=== PATIENT | female | born 1970 | race Caucasian/White ===

== ENCOUNTER 2016-03-25 11:32 | Observation (INO) | payer OTHER ==
[~2016-03-25] VITALS: Ht 154.9 cm; Wt 70.8 kg
[2016-03-25 12:16] LABS: BASO # 0.2 K/mm3 (0.0-0.2); BASO % 2.4 % (0.0-1.0); EOS # 0.3 K/mm3 (0.0-0.50); LARGE UNSTAINED CELL # 0.2 K/mm3 (0.0-0.4); LARGE UNSTAINED CELL % 1.6 % (0.0-4.0); LYMPH # 2.8 K/mm3 (1.5-4.5); LYMPH % 27.8 % (24.0-44.0); MEAN CORPUSCULAR HEMOGLOBIN 30.2 pg (27.0-33.0); MEAN CORPUSCULAR HGB CONC 32.8 g/dl (32.0-36.5); MEAN CORPUSCULAR VOLUME 92.1 fl (80.0-96.0); MONO # 0.3 K/mm3 (0.0-0.8); MONO % 3.5 % (0.0-5.0); NEUTROPHILS % 61.8 % (36.0-66.0); PLATELET COUNT, AUTOMATED 235 k/mm3 (150-450); RED CELL DISTRIBUTION WIDTH 13.8 % (11.5-14.5); WHITE BLOOD COUNT 9.7 K/mm3 (4.0-10.0)
[2016-03-25 12:47] LABS: ANION GAP 7 MEQ/L (8-16); BLOOD UREA NITROGEN 10 MG/DL (7-18); CALCIUM LEVEL 8.5 MG/DL (8.5-10.1); CARBON DIOXIDE LEVEL 26 MEQ/L (21-32); CHLORIDE LEVEL 108 MEQ/L (98-107); CREATININE FOR GFR 0.68 MG/DL (0.55-1.02); FREE T4 0.81 NG/DL (0.76-1.46); GLOMERULAR FILTRATION RATE > 60.0 (>58); GLUCOSE, FASTING 87 MG/DL (70-105); SODIUM LEVEL 141 MEQ/L (136-145)
[2016-03-25 13:01] LABS: MAGNESIUM LEVEL 2.3 MG/DL (1.8-2.4)
--- NOTE | 2016-03-25 13:20 | REP ---
PORTABLE CHEST: AP portable view of the chest is performed and compared to multiple prior exams, most recent of which is 11/04/2014 from [facility]. There is bibasilar fibrotic change which is stable. No definite acute infiltrate is seen. There is mild elevation of the left hemidiaphragm. Heart is normal in size and the mediastinal silhouette is unchanged. IMPRESSION: Stable chronic bibasilar fibrotic changes without evidence of acute infiltrate. Signed by Brian Kunz MD 03/25/2016 05:04 P
[2016-03-25] MEDS ORDERED: FISH5CAP PO (13:24)
[2016-03-25] MEDS ORDERED: CYMB1CAP5 PO (13:24)
[2016-03-25] MEDS ORDERED: MELO15TA4 PO (13:24)
[2016-03-25] MEDS ORDERED: ATOR1TAB21 PO (13:24)
[2016-03-25] MEDS ORDERED: GINK120C4 PO (13:24)
[2016-03-25] MEDS ORDERED: CALCCHW8 PO (13:24)
[2016-03-25] MEDS ORDERED: ISOVUE-370 76% 100ML VIAL (Q9967) As Ordered ONE (15:32)
--- NOTE | 2016-03-25 17:00 | REP ---
CT angiogram of the chest abdomen and pelvis : With IV contrast: History: Evaluate for dissection. Comparison studies: Comparison CT study of the chest without contrast is from 12/16/2014. Contrast dose: 100 mL of Isovue-[address] technique: Helical scanning is acquired and overlapping 1.5 mm and contiguous 3 mm axial images are reformatted. In addition, a 3-D work station is deployed to generate thick slab maximum intensity projection images in sagittal and coronal imaging projections. CT angiographic findings: The thoracic aorta is normal in coarse, contour, and caliber and enhances homogeneously. There is no evidence of thoracic aortic dissection. Great vessels are unremarkable. There is good opacification of the pulmonary arterial tree as well as the and there is no CT evidence of pulmonary embolism. The abdominal aorta enhances homogeneously and shows atherosclerotic vascular changes with calcified pleural plaquing but no evidence of dissection or aneurysm. The common iliac, internal iliac, and external iliac arteries are widely patent bilaterally showing mild atherosclerotic changes. The celiac, superior mesenteric, renal, and inferior mesenteric arteries are patent. The right renal artery is duplicated with a smaller branch the lower pole. No renal artery stenosis is seen. Lung window settings demonstrate a peripheral pattern of subpleural emphysematous changes in the upper lobes bilaterally. There is a post thoracotomy suture line visible in the left upper lobe anteriorly. No pulmonary mass lesion is seen. No new infiltrate is seen. The pulmonary parenchymal findings are unchanged and compared with the prior CT study of 12/16/2014. No pleural effusion or pericardial effusion is seen. There are scattered normal sized mediastinal lymph nodes which are also unchanged. No focal liver lesion is seen. Spleen, adrenal glands, and pancreas remain unremarkable. No renal abnormality is seen. Normal appendix is noted behind the cecum. Uterus is retroverted and retroflexed tipped somewhat to the right. Urinary bladder is intact. No significant bony abnormality is seen. Impression: No CT evidence of aortic dissection or aneurysm or other acute vascular abnormality. No CT evidence of pulmonary embolus. Signed by Brian Mahan MD 03/25/2016 05:15 P
--- NOTE | 2016-03-25 17:35 | ECGEPIP ---
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 RBBB NO PRIORS Electronically Signed On 03-25-2016 17:35:45 EST by Marcus Montero
[2016-03-25] MEDS ORDERED: ONDANSETRON 4MG/2ML VIAL (J2405) IV PRN (17:45)
--- NOTE | 2016-03-25 19:56 | EDDOCDS ---
Nurse's Notes [facility] Name: Reymundo David Age: 45 yrs Sex: Female : 1970 Arrival Date: 03/25/2016 Time: 11:32 Bed TR7 Private MD: Diagnosis: Syncope and collapse-near syncope;Encounter for examination of blood pressure-hypertensive episode, now improved Presentation: 03/25 11:39 Presenting complaint: EMS states: pt with near syncopal episode while at Dr. Mendez kc3 office. EMS reported pt was dizzy and weak. Pt reports felt lethargic. Transition of care: patient was received from Dr. Mendez. 11:39 Acuity: MICHEL Level 3 kc3 11:39 Method Of Arrival: Ambulance 3 11:57 Adult Sepsis Screening: The patient does not have new or worsening altered mentation. kc3 Patient's respiratory rate is less than 22. Systolic blood pressure is greater than 100. Patient has a qSOFA score of 0- Negative Sepsis Screen. Suicide/Homicide risk assessment- the patient denies having any suicidal and/or homicidal ideations and does not present with any other emotional, behavioral or mental health complaints. Status: Patient is not a financial services counselor or dependent. Triage Assessment: 11:57 General: Appears in no apparent distress, comfortable, Behavior is appropriate for age, kc3 cooperative. Pain: Location: headache Pain currently is 4 out of 10 on a pain scale. HIV screening NA for this visit Offered previously. The patient is triaged at the bedside. See Assessment in Nurses Notes section of ED record. Neurological: Level of Consciousness is awake, alert, obeys commands, Oriented to person, place, time. Cardiovascular: Rhythm is sinus bradycardia No ectopy. Respiratory: Respiratory effort is even, unlabored, Respiratory pattern is regular, symmetrical. GI: Reports nausea. Derm: Skin is pink, warm & dry. Musculoskeletal: Circulation, motion, and sensation intact. COIN PURSE FRAMER: 11:58 LMP N/A - Post-menopause kc3 Historical: - Allergies: no known allergies; - Home Meds: 1. meloxicam 15 mg oral tab once daily (Last dose: 03/24/2016) 2. atorvastatin 20 mg oral tab 1 tab once daily (Last dose: 03/24/2016) 3. duloxetine 30 mg Oral cpDR 1 cap once daily (Last dose: 03/24/2016) 4. omega complete daily 5. calcium vitamin d3 daily 6. gingkgo biloba daily - PMHx: Emphysema; Hypercholesterolemia; Migraines; Chiari Malformation; - PSHx: emobolus removal from lung; Carpal Tunnel Repair- Bilateral; - Social history: Smoking status: Patient uses tobacco products, heavy tobacco smoker. No barriers to communication noted, The patient speaks fluent Stateless, Speaks appropriately for age. - Family history: Not pertinent. - : The pt / caregiver states he / she is not on anticoagulants. Home medication list is obtained from the patient. - Exposure Risk Screening:: None identified. Screenin:58 Screening information is obtained from the patient. Fall risk: At risk due to near kc3 syncope. The following interventions are performed due to a positive Fall Risk Screen: Fall Risk is added to Special Handling on the patient Summary Screen. A Fall Risk Bracelet was applied to the patient. Side Rails are placed in the up position. A Call Simon is given with instruction to call for help when getting out of bed. Fall Alert bracelet is placed on the patient. Assistance ADL's: requires no assistance with activities of daily living. Abuse/DV Screen: The patient / caregiver reports he/she is: not in a situation that causes fear, pain or injury. Nutritional screening: No deficits noted. Advance Directives: Currently, there is no health care proxy. home support is adequate. Assessment: 12:20 General: See triage for initial assessment. . kc3 13:00 General: Appears in no apparent distress, comfortable, Behavior is appropriate for age, kc3 cooperative. General: Pt reported "several seconds of chest pain where my arms felt weak." Pt reports pain as non-radiating and has now resolved. Annalise Killian NP aware. . Pain: Denies pain. Neurological: Level of Consciousness is awake, alert, obeys commands, Oriented to person, place, time. Cardiovascular: Rhythm is sinus rhythm Chest pain is denied. Respiratory: Respiratory effort is even, unlabored. Derm: Skin is pink, warm & dry. 13:57 Adult Sepsis Screening: The patient does not have new or worsening altered mentation. kc3 Patient's respiratory rate is less than 22. Systolic blood pressure is greater than 100. Patient has a qSOFA score of 0- Negative Sepsis Screen. 14:05 General: Appears in no apparent distress, comfortable, Behavior is appropriate for age, kc3 cooperative. Pain: Denies pain. Neurological: Level of Consciousness is awake, alert, obeys commands. Cardiovascular: Rhythm is sinus rhythm. Respiratory: Respiratory effort is even, unlabored. Derm: Skin is pink, warm & dry. 14:45 General: Appears in no apparent distress, comfortable, Behavior is appropriate for age, kc3 cooperative. General: Pt given diet tray. . Pain: Denies pain. Neurological: Level of Consciousness is awake, alert, obeys commands. Respiratory: Respiratory effort is even, unlabored. 15:59 General: Appears in no apparent distress, comfortable, Behavior is appropriate for age, kc3 cooperative. Pain: Denies pain. Neurological: Level of Consciousness is awake, alert, obeys commands, Oriented to person, place, time. Cardiovascular: Rhythm is sinus rhythm. Respiratory: Respiratory effort is even, unlabored. Derm: Skin is pink, warm & dry. 17:06 General: Appears in no apparent distress, comfortable, Behavior is appropriate for age, kc3 cooperative. Pain: Denies pain. Neurological: Level of Consciousness is awake, alert, obeys commands, Oriented to person, place, time. Cardiovascular: Rhythm is sinus rhythm. Respiratory: Respiratory effort is even, unlabored. Derm: Skin is pink, warm & dry. 17:32 General: Admitting MD at bedside. . kc3 17:45 General: Report given to irvin nurse. . kc3 18:34 General: Appears in no apparent distress, comfortable, Behavior is appropriate for age, me3 cooperative. Neurological: Level of Consciousness is awake, alert, Oriented to person. Respiratory: Airway is patent Respiratory effort is even, unlabored. 19:54 General: Pt signed out AMA per Evonne Bowers RN irvin nurse.. sls1 Vital Signs: 11:49 BP 121 / 58; Pulse 56; Resp 18; Temp 99; Pulse Ox 97% on R/A; Weight 70.76 kg (R); ct3 Height 5 ft. 1 in. (154.94 cm) (R); Pain 0/10; 13:28 BP 114 / 66 RA Sitting (auto/reg); Pulse 77; Resp 18; Pulse Ox 96% on R/A; ct3 13:28 BP 118 / 56 RA Supine (auto/reg); Pulse 56; Resp 18; Temp 97.2(O); Pulse Ox 96% on R/A; ct3 Pain 0/10; 13:28 BP 103 / 69 RA Standing (auto/reg); Pulse 77; Resp 18; Pulse Ox 96% on R/A; ct3 14:46 Pulse 70 MON; Pulse Ox 95% ; kc3 14:47 BP 129 / 69 (auto/); kc3 15:17 BP 111 / 58 (auto/); kc3 15:17 Pulse 64 MON; Pulse Ox 96% ; kc3 15:46 Pulse 64 MON; Pulse Ox 95% ; kc3 15:47 BP 111 / 55 (auto/); kc3 16:17 BP 133 / 58 (auto/); kc3 16:17 Pulse 64 MON; Pulse Ox 94% ; kc3 16:47 BP 112 / 70 (auto/); kc3 16:47 Pulse 62 MON; Pulse Ox 95% ; kc3 17:18 BP 127 / 59 (auto/); kc3 17:18 Pulse 58 MON; Pulse Ox 95% ; kc3 11:49 Body Mass Index 29.48 (70.76 kg, 154.94 cm) ct3 Vitals: 11:49 Log In Time N/A - ambulance arrival. ct3 ED Course: 11:33 Patient visited by Celia Lynn, Assembly Loader. deg 11:33 Patient moved to Waiting deg 11:34 Edie Wu,RN is Primary Nurse. deg 11:34 Patient moved to 11 deg 11:40 Triage Initiated kc3 11:40 Maintain field IV. Dressing intact. Site clean & dry. Gauge & site: 18g left AC. kc3 11:49 Patient has correct armband on for positive identification. Placed in gown. Bed in low ct3 position. Call light in reach. Side rails up X2. court usher on. Pulse ox on. NIBP on. 11:50 Patient visited by Tamela Montoya PCA. ct3 11:58 The patient / caregiver is instructed regarding the plan of care and ED course. kc3 12:26 Patient visited by Edie Wu,SHRADDHA. kc3 12:35 Annalise Killian FNP is PHCP. le 12:40 Patient visited by Annalise Killian FNP. le 12:41 Patient visited by Annalise Killian FNP. le 13:13 Patient visited by Shreyas Aguirre PCA. jlf 13:31 Patient visited by Tamela Montoya PCA. ct3 13:32 Chest, 1 View Returned. EDMS 14:06 Patient visited by Edie Wu,SHRADDHA. kc3 14:47 Patient visited by Edie Wu,SHRADDHA. kc3 14:55 Natty Bo is Hospitalizing Provider. le 14:59 Patient visited by Edie Wu RN. kc3 15:01 Patient visited by Edie Wu RN. kc3 15:13 Patient name changed from Reymundo\\S\\\\S\\Frankie\\S\\ to Reymundo\\S\\M\\S\\Miller. EDMS 15:13 [place] Payment Agreement was scanned into [employer] and attached to record. lg 15:17 Patient moved to Admit Hold js13 17:07 Patient visited by Edie Wu RN. kc3 17:13 Chest, 1 View Returned. EDMS 17:14 CT Chest Angio R/O PE Returned. EDMS 17:32 Patient visited by Edie Wu RN. kc3 17:37 Patient moved to I9 / 22 kcs 17:46 Patient visited by Edie Wu RN. kc3 17:50 EKG-ADULT Returned. EDMS 17:58 Patient moved to Ultrasound hgl 18:04 Patient moved to Admit Hold js13 18:35 Diet: Patient given regular meal. Tolerated well. me3 19:53 Patient moved to TR7 [facility] Order Results: Lab Order: CBC with Diff; SPEC'M 03/25/16 12:05 Test: WHITE BLOOD COUNT; Value: 9.7; Range: 4.0-10.0; Units: K/mm3; Status: F Test: RED BLOOD COUNT; Value: 4.71; Range: 4.00-5.40; Units: M/mm3; Status: F Test: HEMOGLOBIN; Value: 14.2; Range: 12.0-16.0; Units: g/dl; Status: F Test: HEMATOCRIT; Value: 43.3; Range: 36.0-47.0; Units: %; Status: F Test: MEAN CORPUSCULAR VOLUME; Value: 92.1; Range: 80.0-96.0; Units: fl; Status: F Test: MEAN CORPUSCULAR HEMOGLOBIN; Value: 30.2; Range: 27.0-33.0; Units: pg; Status: F Test: MEAN CORPUSCULAR HGB CONC; Value: 32.8; Range: 32.0-36.5; Units: g/dl; Status: F Test: RED CELL DISTRIBUTION WIDTH; Value: 13.8; Range: 11.5-14.5; Units: %; Status: F Test: PLATELET COUNT, AUTOMATED; Value: 235; Range: 150-450; Units: k/mm3; Status: F Test: NEUTROPHILS %; Value: 61.8; Range: 36.0-66.0; Units: %; Status: F Test: LYMPH %; Value: 27.8; Range: 24.0-44.0; Units: %; Status: F Test: MONO %; Value: 3.5; Range: 0.0-5.0; Units: %; Status: F Test: EOS %; Value: 3.0; Range: 0.0-3.0; Units: %; Status: F Test: BASO %; Value: 2.4; Range: 0.0-1.0; Abnormal: Above high normal; Units: %; Status: F Test: LARGE UNSTAINED CELL %; Value: 1.6; Range: 0.0-4.0; Units: %; Status: F Test: NEUTROPHILS #; Value: 6.0; Range: 1.8-7.7; Units: K/mm3; Status: F Test: LYMPH #; Value: 2.8; Range: 1.5-4.5; Units: K/mm3; Status: F Test: MONO #; Value: 0.3; Range: 0.0-0.8; Units: K/mm3; Status: F Test: EOS #; Value: 0.3; Range: 0.0-0.50; Units: K/mm3; Status: F Test: BASO #; Value: 0.2; Range: 0.0-0.2; Units: K/mm3; Status: F Test: LARGE UNSTAINED CELL #; Value: 0.2; Range: 0.0-0.4; Units: K/mm3; Status: F Lab Order: MED Profile; SPEC'M 17 12:05 Test: GLUCOSE, FASTING; Value: 87; Range: 70-105; Units: MG/DL; Status: F Test: BLOOD UREA NITROGEN; Value: 10; Range: 7-18; Units: MG/DL; Status: F Test: CREATININE FOR GFR; Value: 0.68; Range: 0.55-1.02; Units: MG/DL; Status: F Test: GLOMERULAR FILTRATION RATE; Value: > 60.0; Range: >58; Status: F Test: SODIUM LEVEL; Value: 141; Range: 136-145; Units: MEQ/L; Status: F Test: POTASSIUM SERUM; Value: 4.0; Range: 3.5-5.1; Units: MEQ/L; Status: F Test: CHLORIDE LEVEL; Value: 108; Range: 98-107; Abnormal: Above high normal; Units: MEQ/L; Status: F Test: CARBON DIOXIDE LEVEL; Value: 26; Range: 21-32; Units: MEQ/L; Status: F Test: ANION GAP; Value: 7; Range: 8-16; Abnormal: Below low normal; Units: MEQ/L; Status: F Test: CALCIUM LEVEL; Value: 8.5; Range: 8.5-10.1; Units: MG/DL; Status: F Test Note: ; Units are mL/min/1.73 m2 Chronic Kidney Disease Staging per NKF: Stage I & II GFR >=60 Normal to Mildly Decreased Stage III GFR 30-59 Moderately Decreased Stage IV GFR 15-29 Severely Decreased Stage V GFR <15 Very Little GFR Left ESRD GFR <15 on STAMP MOUNTER Lab Order: CIP; SPEC'M 03/25/16 12:05 Test: CPK CREATINE PHOSPHOKINASE; Value: 206; Range: 26-192; Abnormal: Above high normal; Units: U/L; Status: F Test: CK-MB VALUE MASS; Value: 1.8; Range: 0.0-3.6; Units: NG/ML; Status: F Test: MB/CK RELATIVE INDEX; Value: 0.87; Range: < OR =4; Status: F Test Note: ; DIAGNOSIS CRITERIA MMB ng/ml Relative Index (RI) NON-AMI < or = 5 N/A KUNZ ZONE > 5 < or = 4 AMI > 5 > 4 Lab Order: Troponin; SPEC'M 03/25/16 12:05 Test: TROPONIN I; Value: < 0.02; Range: < 0.10; Units: NG/ML; Status: F Test Note: ; Troponin I Reference Interval for Siemens [place] LOCI: 99th Percentile= 0.00-0.045 ng/ml Risk Stratification: <= 0.10 ng/ml Decreased Risk for Adverse Clinical Events. 0.10-1.50 ng/ml Increased Risk for Adverse Clinical Events. Evaluation of additional criterion and/or repeat testing in 2-6 hours is suggested to rule out myocardial damage. >= 1.50 ng/ml Indicative of Myocardial Injury. Lab Order: FreeT4 with TSH; SPEC'M 03/25/16 12:05 Test: THYROID STIMULATING HORMONE; Value: 1.120; Range: 0.358-3.740; Units: uIU/ML; Status: F Test: FREE T4; Value: 0.81; Range: 0.76-1.46; Units: NG/DL; Status: F Lab Order: D-Dimer Quant; SPEC'M 03/25/16 12:05 Test: D-DIMER QUANT; Value: 426.8; Range: <500; Units: ng/ml; Status: F Lab Order: MAGNESIUM LEVEL; SPEC'M 03/25/16 12:05 Test: MAGNESIUM LEVEL; Value: 2.3; Range: 1.8-2.4; Units: MG/DL; Status: F Radiology Order: EKG-ADULT Test: EKG-ADULT REASON FOR EXAMINATION: Syncope; Stationary ECG Study; [facility] - ED; ; Test Date: 2016-03-25; Pat Name: REYMUNDO DAVID Department:; Room: -; 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 RBBB; NO PRIORS; Electronically Signed On 03-25-2016 17:35:45 EST by Marcus Montero; Radiology Order: Chest, 1 View Test: Chest, 1 View REASON FOR EXAMINATION: Syncope; PORTABLE CHEST:; ; AP portable view of the chest is performed and compared to multiple prior exams,; most recent of which is 11/04/2014 from [facility]. There is; bibasilar fibrotic change which is stable. No definite acute infiltrate is seen.; There is mild elevation of the left hemidiaphragm. Heart is normal in size and; the mediastinal silhouette is unchanged.; ; IMPRESSION:; ; Stable chronic bibasilar fibrotic changes without evidence of acute infiltrate.; ; ; Signed by; Brian Kunz MD 03/25/2016 05:04 P; Radiology Order: CT Chest Angio R/O PE Test: CT Chest Angio R/O PE REASON FOR EXAMINATION: eval for dissection; CT angiogram of the chest abdomen and pelvis : With IV contrast:; ; History: Evaluate for dissection.; ; Comparison studies: Comparison CT study of the chest without contrast is from; 12/16/2014.; ; Contrast dose: 100 mL of Isovue-370 are administered intravenously.; ; CT technique: Helical scanning is acquired and overlapping 1.5 mm and contiguous; 3 mm axial images are reformatted. In addition, a 3-D work station is deployed; to generate thick slab maximum intensity projection images in sagittal and; coronal imaging projections.; ; CT angiographic findings: The thoracic aorta is normal in coarse, contour, and; caliber and enhances homogeneously. There is no evidence of thoracic aortic; dissection. Great vessels are unremarkable. There is good opacification of the; pulmonary arterial tree as well as the and there is no CT evidence of pulmonary; embolism. The abdominal aorta enhances homogeneously and shows atherosclerotic; vascular changes with calcified pleural plaquing but no evidence of dissection or; aneurysm. The common iliac, internal iliac, and external iliac arteries are; widely patent bilaterally showing mild atherosclerotic changes. The celiac,; superior mesenteric, renal, and inferior mesenteric arteries are patent. The; right renal artery is duplicated with a smaller branch the lower pole. No renal; artery stenosis is seen.; ; Lung window settings demonstrate a peripheral pattern of subpleural emphysematous; changes in the upper lobes bilaterally. There is a post thoracotomy suture line; visible in the left upper lobe anteriorly. No pulmonary mass lesion is seen. No; new infiltrate is seen. The pulmonary parenchymal findings are unchanged and; compared with the prior CT study of 12/16/2014. No pleural effusion or; pericardial effusion is seen. There are scattered normal sized mediastinal lymph; nodes which are also unchanged. No focal liver lesion is seen. Spleen, adrenal; glands, and pancreas remain unremarkable. No renal abnormality is seen. Normal; appendix is noted behind the cecum. Uterus is retroverted and retroflexed tipped; somewhat to the right. Urinary bladder is intact. No significant bony; abnormality is seen.; ; Impression:; ; No CT evidence of aortic dissection or aneurysm or other acute vascular; abnormality. No CT evidence of pulmonary embolus.; ; ; Signed by; Brian Mahan MD 03/25/2016 05:15 P; Outcome: 15:00 Decision to Hospitalize by Provider. le 17:07 CT Study completed. kc3 19:54 The following High Risk Discharge criteria are identified: Yes, pt signed out AMA. [facility] patient is leaving AMA: AMA form signed, Notification of AMA status is made to the charge nurse, the oncology social worker, the ED attending physician, Other Dr Magdaleno. Condition: unknown. 19:55 Patient left the ED. [facility] Signatures: Dispatcher [employer] EDMS Kenna Rojas, RN RN kcs Celia Lynn, Assembly Loader Unit deg Karina Tanner, Ben Reg lg Brielle Pan,AIR LIFT OPERATOR AIR LIFT OPERATOR me3 Annalise Killian, MATZO FORMING MACHINE OPERATOR MATZO FORMING MACHINE OPERATOR Tamela Cavanaugh, CABLEMAN CABLEMAN ct3 Meaghan Jarvis, RN RN sls1 Thao Patterson,RN RN js13 Jose Zamarripa l Shreyas Aguirre, CABLEMAN CABLEMAN jlf Edie Wu,RN RN kc3 MTDD
--- NOTE | 2016-03-25 19:56 | EDDOCDS ---
Physician Documentation [facility] Name: Ofe David Age: 45 yrs Sex: Female : 1970 Arrival Date: 03/25/2016 Time: 11:32 Bed TR7 Private MD: Disposition: 03/25/16 15:00 Hospitalization ordered by Natty Bo for Observation. Preliminary diagnosis are Syncope and collapse - near syncope, Encounter for examination of blood pressure - hypertensive episode, now improved. - Bed requested for Admit. - Status is Observation. sls1 - Condition is Stable. - Problem is an acute exacerbation. - Symptoms have improved. Historical: - Allergies: no known allergies; - Home Meds: 1. meloxicam 15 mg oral tab once daily (Last dose: 03/24/2016) 2. atorvastatin 20 mg oral tab 1 tab once daily (Last dose: 03/24/2016) 3. duloxetine 30 mg Oral cpDR 1 cap once daily (Last dose: 03/24/2016) 4. omega complete daily 5. calcium vitamin d3 daily 6. gingkgo biloba daily - PMHx: Emphysema; Hypercholesterolemia; Migraines; Chiari Malformation; - PSHx: emobolus removal from lung; Carpal Tunnel Repair- Bilateral; - Social history: Smoking status: Patient uses tobacco products, heavy tobacco smoker. No barriers to communication noted, The patient speaks fluent Kazakh, Speaks appropriately for age. - Family history: Not pertinent. - : The pt / caregiver states he / she is not on anticoagulants. Home medication list is obtained from the patient. - Exposure Risk Screening:: None identified. 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 1 in. (154.94 cm) (R); Pain 0/10; 13:28 BP 114 / 66 RA Sitting (auto/reg); Pulse 77; Resp 18; Pulse Ox 96% on R/A; ct3 13:28 BP 118 / 56 RA Supine (auto/reg); Pulse 56; Resp 18; Temp 97.2(O); Pulse Ox 96% on R/A; ct3 Pain 0/10; 13:28 BP 103 / 69 RA Standing (auto/reg); Pulse 77; Resp 18; Pulse Ox 96% on R/A; ct3 14:46 Pulse 70 MON; Pulse Ox 95% ; kc3 14:47 BP 129 / 69 (auto/); kc3 15:17 BP 111 / 58 (auto/); kc3 15:17 Pulse 64 MON; Pulse Ox 96% ; kc3 15:46 Pulse 64 MON; Pulse Ox 95% ; kc3 15:47 BP 111 / 55 (auto/); kc3 16:17 BP 133 / 58 (auto/); kc3 16:17 Pulse 64 MON; Pulse Ox 94% ; kc3 16:47 BP 112 / 70 (auto/); kc3 16:47 Pulse 62 MON; Pulse Ox 95% ; kc3 17:18 BP 127 / 59 (auto/); kc3 17:18 Pulse 58 MON; Pulse Ox 95% ; kc3 11:49 Body Mass Index 29.48 (70.76 kg, 154.94 cm) ct3 MDM: 11:42 IV Saline Lock ordered. ml 11:42 Plant Engineering Manager/Pulse Ox/q 15 min VS ordered. ml 11:42 Rhythm Strip to chart ordered. ml 11:42 ECG WITH READING ER PHYS+CARDIAG ordered. EDMS 11:43 CBC with Diff Ordered. EDMS 11:43 MED Profile Ordered. EDMS 11:43 CIP Ordered. EDMS 11:43 Troponin Ordered. EDMS 11:43 FreeT4 with TSH Ordered. EDMS 11:44 Chest, 1 View Ordered. EDMS 12:36 Orthostatic VS ordered. le 12:54 BED REQUEST+ADM ordered. EDMS 12:54 D-Dimer Quant Ordered. EDMS 12:54 CBC with Diff Reviewed. le 12:54 MED Profile Reviewed. le 12:54 Troponin Reviewed. le 12:59 MED Profile Reviewed. le 12:59 CIP Reviewed. le 12:59 Troponin Reviewed. le 12:59 FreeT4 with TSH Reviewed. le 13:22 MED Profile Reviewed. le 13:22 CIP Reviewed. le 13:22 Troponin Reviewed. le 13:22 FreeT4 with TSH Reviewed. le 13:22 D-Dimer Quant Reviewed. le 13:22 MAGNESIUM LEVEL Reviewed. le 14:13 Financial registration complete. lg 14:40 Chest, 1 View Reviewed. le 15:10 CT Chest Angio R/O PE Ordered. EDMS 15:11 CT ANGIO ABD/PEL Ordered. EDMS 15:13 [place] Payment Agreement was scanned into [employer] and attached to record. lg 17:38 ECHOCARD,DOPPLER/COLOR FLOW ordered. EDMS 17:38 2 GRAM SODIUM DIET ordered. EDMS 17:39 Duplex,carotid (complete) Ordered. EDMS 17:43 URINE METANEPHRINES RANDOM Ordered. EDMS 18:04 Admission / Observation Status ordered. EDMS 19:32 COMPLETE BLOOD COUNT Ordered. EDMS 19:32 BASIC METABOLIC PROFILE Ordered. EDMS Signatures: Dispatcher [employer] EDMS Jaimie Ureña MD MD ml Karina Tanner, Reg Reg Annalise Buckley, Meaghan Bolden, RN RN sls1 Edie Wu,RN RN kc3 The chart was reviewed and I authenticate all verbal orders and agree with the evaluation and treatment provided.Corrections: (The following items were deleted from the chart) 13:00 12:55 MAGNESIUM LEVEL+LAB ordered. EDMS EDMS 17:38 14:29 REGULAR+DIET ordered. EDOR EDMS Attachments: 15:13 [place] Payment Agreement lg MTDD
[2016-03-25] MEDS ORDERED: HEPARIN SOD (PORCINE) 5000 UNITS/ML VIAL SC SCH (20:00)
[2016-03-25] MEDS ORDERED: NICOTINE 14 MG/24 HR TRANSDERMAL TD SCH (21:00)
[2016-03-25] MEDS ORDERED: ATORVASTATIN 20 MG TAB PO SCH (21:00)
[2016-03-25] MEDS ORDERED: DULoxetine 30 MG CAP (CYMBALTA) PO SCH (21:00)
[2016-03-25] MEDS ORDERED: MELOXICAM (MOBIC) 7.5 MG TAB PO SCH (21:00)
--- NOTE | 2016-03-25 21:29 | HPE ---
DATE OF ADMISSION: 03/25/2016 PRIMARY CARE PROVIDER: Dr. Bonds, [facility] NEUROSURGEON: Dr. Mendez. NEUROLOGIST: Dr. Page. CHIEF COMPLAINT: Hypertension. HISTORY OF PRESENT ILLNESS: Ms. David is a 45-year-old female with past medical history of Chiari malformation who was sent in from Dr. Mendez's office for high blood pressure. The patient states that in the last couple of months, has been feeling tired. She actually presented to Dr. Mendez's office today for routine followup and wanted to know the cause if her fatigue was related to her Chiari malformation. During the initial exam, she was found to have hypertension, systolic reportedly was anywhere from the 100s to low 200 range. Because of concern for her high blood pressure, she was sent in for further evaluation. Normally does not have a history of hypertension. States that she has had occasional episodes of syncopal episodes lasting for seconds. She is able to recall what happened after passing out. No postictal confusion, no urinary or bowel incontinence. The last time she had a syncopal episode was approximately a month ago. Recently she noticed that she is more tired, dizzy, lightheaded. She was told that her syncopal, near-syncopal episodes were likely secondary to her high blood pressure. She previously was started on tizanidine; however, because of concern for her muscle spasm where she feels "electrocution" going between her shoulder to her arm, she has stopped this medication altogether. Associated with chronic migraine headache, nausea. Says fatigue feels the same today. No chest pain, palpitations, fevers, chills. Chronic shortness of breath which she attributes to her underlying emphysema. Positive for chronic night sweats. In the emergency department (ED), her systolic blood pressure was 121 highest. Her orthostatics were positive. PAST MEDICAL HISTORY: 1. Tension pneumothorax. 2. Emphysema. 3. Hyperlipidemia. 4. Migraine headache. 5. Chiari malformation. 6. Arthritis. PAST SURGICAL HISTORY: 1. Left upper lobe wedge resection and bullectomy. 2. Carpal tunnel bilateral hand repair. ALLERGIES: No known drug allergies. HOME MEDICATIONS: - Lipitor 20 mg by mouth at bedtime - calcium one tab chewable - Cymbalta 30 mg at bedtime - fish oil 1200 every two days - gingko biloba 120 mg a few times a month - meloxicam 50 mg at bedtime which she takes for her chronic neck and headache SOCIAL HISTORY: The patient is a current smoker. Started smoking at the age of 20, a pack a day. Drinks whiskey once a month, a few shots. No drug use. No recent travel. 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 Lifetime travels includes to [place] and [place]. Currently lives at home with her two children and two cats. No history of tuberculosis or asbestos that she is aware of. FAMILY HISTORY: Mother from heart problems, hypertension. Father from alcohol and heart disease and prostate cancer. REVIEW OF SYSTEMS: CONSTITUTIONAL: Denies fevers, chills, rigors, weight changes. Positive for chronic chills, fatigue. HEENT: Positive for lightheadedness, dizziness. Tunnel vision with her headaches. No blurry vision, difficulty with speech and swallow. CARDIOVASCULAR: Denies chest pain, paroxysmal nocturnal dyspnea, pillow orthopnea, lower extremity edema. RESPIRATORY: Positive for chronic shortness of breath which is unchanged due to her emphysema. GASTROINTESTINAL: Denies hematochezia, melena, or hematemesis, nausea, vomiting, diarrhea, constipation. GENITOURINARY: No dysuria, frequency or hematuria. MUSCULOSKELETAL: No bone, muscle, joint pain. NEUROLOGICAL: Positive for Chiari malformation and migraine headaches. ENDOCRINE: Negative for diabetes, or thyroid disease. LYMPHATICS: No lumps, bumps, or swelling anywhere in neck, axilla, or groin. HEMATOLOGY: No abnormal bleeding or bruising. PSYCHIATRIC: No history of anxiety or depression. PHYSICAL EXAMINATION: VITAL SIGNS: Blood pressure 121/58, heart rate 56, respiratory rate 18, pulse oximetry 97% on room air, temperature 99. Body mass index (BMI) 30. GENERAL: The patient is lying in bed flat, comfortably in no acute distress. She is alert, awake, oriented times three. Pleasant, cooperative. HEENT: Normocephalic, atraumatic. Moist oral mucosa. Pupils equal and reactive to light. NECK: Supple. Trachea midline. No jugular venous distention (JVD). CHEST: Symmetric chest rise. No accessory muscle use. Breath sounds are clear to auscultation bilaterally. HEART: Regular rate and rhythm. S1, S2 present. ABDOMEN: Soft, nontender, nondistended. Bowel sounds present. No guarding, no rebound. EXTREMITIES: No pedal edema. Pedal pulses present bilaterally. NEUROLOGIC: Sensory intact. Strength 5/5 in all extremities. Deep tendon reflex (DTR) 2/4. Negative Babinski. Intact sucnce-[id number] and ghbp-[id number] testing. LABORATORY DATA: WBC 9.7, hemoglobin 14.2, hematocrit 43.4, platelets 235. Sodium 141, potassium 4, chloride 108, carbon dioxide 26, BUN 10, creatinine 0.68, glucose 87. Total CK 206, troponin negative. TSH normal. Free T4 normal. Coagulation: D-Dimer 426. EKG showed sinus rhythm, rate of 67, QTC 455. IMAGING: Chest x-ray showed stable chronic bibasilar fibrotic changes without evidence of acute infiltrate. CT angiogram showed no evidence of aortic dissection, aneurysm, or other acute vascular abnormality. IMPRESSION AND PLAN: Ms. David is a 45-year-old female with history of Chiari malformation, sent in for incidental finding of hypertension. 1. Hypertension. Transient hypertension. Resolved. Her blood pressure in the emergency department has been running systolic in the 100s-120s. Etiology for her transient hypertension unclear. She has no provoking factors. However, due to her history of recurrent syncopal episodes and near-syncopal episode, we have ordered a carotid ultrasound echo. Thyroid studies were checked and within normal limits. The patient will be monitored in the progressive care unit (PCU) closely to monitor for any underlying arrhythmia. She had mild QT elevation with QT 455. Will check for possible other causes for her transient hypertension including workup for pheochromocytoma. 2. History of Chiari malformation. Follows closely with neurology and neurosurgeon outpatient. 3. Emphysema with bulla, status post wedge resection. 4. Hyperlipidemia. Continue home dose Lipitor. 5. Chronic neck pain and headache. Continue Cymbalta. Continue meloxicam at bedtime. 6. Deep venous thrombosis (DVT) prophylaxis. Sequential compression devices (SCDs), thromboembolism deterrent stockings (TEDs), and heparin. My preceptor for this patient encounter was Dr. Natty Bo. The preceptor was physically present in the building during the encounter and was fully available as needed. All aspects of the patient interview, examination, medical decision making process, and medical care plan development were reviewed and approved by the preceptor. The preceptor is aware and concurs with the plan as stated in the body of this note and will attest to such by his/her co-signature. RYAN
--- NOTE | 2016-03-26 03:35 | REP ---
Clinical: Near-syncopal episode. Comparison: 01/24/2014 . Technique: Kunz scale and color Doppler evaluation using linear high frequency transducer Findings: Two-dimensional kunz scale and color images demonstrate normal arterial lumen with laminar flow and no appreciable narrowing. Color Doppler interrogation demonstrates normal arterial wave patterns and velocities with no significant spectral broadening. Normal flow direction is appreciated in the bilateral vertebral arteries. RIGHT (cm/s) LEFT (cm/s) ICA peak systolic velocity 54.9 91.1 ICA diastolic velocity 21.8 39.2 ECA peak systolic velocity 51.8 32.9 CCA peak systolic velocity 69.1 70.4 ICA/CCA ratio 0.79 1.29 Impression: No hemodynamically significant areas of narrowing or stenosis appreciated. Based on set standards narrowing falls within the normal range. Signed by Pricne Bajwa MD 03/26/2016 03:26 A
--- NOTE | 2016-03-27 20:55 | EDDOCDS ---
Physician Documentation [facility] Name: Ofe David Age: 45 yrs Sex: Female : 1970 Arrival Date: 03/25/2016 Time: 11:32 Bed TR7 Private MD: Disposition: 03/25/16 15:00 Hospitalization ordered by Natty Bo for Observation. Preliminary diagnosis are Syncope and collapse - near syncope, Encounter for examination of blood pressure - hypertensive episode, now improved. - Bed requested for Admit. - Status is Observation. sls1 - Condition is Stable. - Problem is an acute exacerbation. - Symptoms have improved. Historical: - Allergies: no known allergies; - Home Meds: 1. meloxicam 15 mg oral tab once daily (Last dose: 03/24/2016) 2. atorvastatin 20 mg oral tab 1 tab once daily (Last dose: 03/24/2016) 3. duloxetine 30 mg Oral cpDR 1 cap once daily (Last dose: 03/24/2016) 4. omega complete daily 5. calcium vitamin d3 daily 6. gingkgo biloba daily - PMHx: Emphysema; Hypercholesterolemia; Migraines; Chiari Malformation; - PSHx: emobolus removal from lung; Carpal Tunnel Repair- Bilateral; - Social history: Smoking status: Patient uses tobacco products, heavy tobacco smoker. No barriers to communication noted, The patient speaks fluent Portuguese, Speaks appropriately for age. - Family history: Not pertinent. - : The pt / caregiver states he / she is not on anticoagulants. Home medication list is obtained from the patient. - Exposure Risk Screening:: None identified. 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 1 in. (154.94 cm) (R); Pain 0/10; 13:28 BP 114 / 66 RA Sitting (auto/reg); Pulse 77; Resp 18; Pulse Ox 96% on R/A; ct3 13:28 BP 118 / 56 RA Supine (auto/reg); Pulse 56; Resp 18; Temp 97.2(O); Pulse Ox 96% on R/A; ct3 Pain 0/10; 13:28 BP 103 / 69 RA Standing (auto/reg); Pulse 77; Resp 18; Pulse Ox 96% on R/A; ct3 14:46 Pulse 70 MON; Pulse Ox 95% ; kc3 14:47 BP 129 / 69 (auto/); kc3 15:17 BP 111 / 58 (auto/); kc3 15:17 Pulse 64 MON; Pulse Ox 96% ; kc3 15:46 Pulse 64 MON; Pulse Ox 95% ; kc3 15:47 BP 111 / 55 (auto/); kc3 16:17 BP 133 / 58 (auto/); kc3 16:17 Pulse 64 MON; Pulse Ox 94% ; kc3 16:47 BP 112 / 70 (auto/); kc3 16:47 Pulse 62 MON; Pulse Ox 95% ; kc3 17:18 BP 127 / 59 (auto/); kc3 17:18 Pulse 58 MON; Pulse Ox 95% ; kc3 11:49 Body Mass Index 29.48 (70.76 kg, 154.94 cm) ct3 MDM: 11:42 IV Saline Lock ordered. ml 11:42 Air Intercept Controller/Pulse Ox/q 15 min VS ordered. ml 11:42 Rhythm Strip to chart ordered. ml 11:42 ECG WITH READING ER PHYS+CARDIAG ordered. EDMS 11:43 CBC with Diff Ordered. EDMS 11:43 MED Profile Ordered. EDMS 11:43 CIP Ordered. EDMS 11:43 Troponin Ordered. EDMS 11:43 FreeT4 with TSH Ordered. EDMS 11:44 Chest, 1 View Ordered. EDMS 12:36 Orthostatic VS ordered. le 12:54 BED REQUEST+ADM ordered. EDMS 12:54 D-Dimer Quant Ordered. EDMS 12:54 CBC with Diff Reviewed. le 12:54 MED Profile Reviewed. le 12:54 Troponin Reviewed. le 12:59 MED Profile Reviewed. le 12:59 CIP Reviewed. le 12:59 Troponin Reviewed. le 12:59 FreeT4 with TSH Reviewed. le 13:22 MED Profile Reviewed. le 13:22 CIP Reviewed. le 13:22 Troponin Reviewed. le 13:22 FreeT4 with TSH Reviewed. le 13:22 D-Dimer Quant Reviewed. le 13:22 MAGNESIUM LEVEL Reviewed. le 14:13 Financial registration complete. lg 14:40 Chest, 1 View Reviewed. le 15:10 CT Chest Angio R/O PE Ordered. EDMS 15:11 CT ANGIO ABD/PEL Ordered. EDMS 15:13 [facility] Payment Agreement was scanned into [employer] and attached to record. lg 17:38 ECHOCARD,DOPPLER/COLOR FLOW ordered. EDMS 17:38 2 GRAM SODIUM DIET ordered. EDMS 17:39 Duplex,carotid (complete) Ordered. EDMS 17:43 URINE METANEPHRINES RANDOM Ordered. EDMS 18:04 Admission / Observation Status ordered. EDMS 19:32 COMPLETE BLOOD COUNT Ordered. EDMS 19:32 BASIC METABOLIC PROFILE Ordered. EDMS 03/26 07:40 Attending Doctor Change: ordered. EDMS 07:40 CBC WITH DIFFERENTIAL Ordered. EDMS 07:40 BASIC METABOLIC PROFILE Ordered. EDMS 11:56 Refusal of Services was scanned into MEDHOST and attached to record. gb 11:56 T-Sheet-- Draft Copy was scanned into MEDHOST and attached to record. gb 11:56 ECG/EKG was scanned into MEDHOST and attached to record. gb 11:57 Rhythm Strip was scanned into MEDHOST and attached to record. gb Signatures: Dispatcher [employer]-Jaimie Kunz MD MD ml Barnhardt, Gloria, Reg Reg gb Karina Tnaner, Reg Reg lg Annalise Killian, Meaghan Bolden RN RN sls1 Edie Wu RN RN kc3 The chart was reviewed and I authenticate all verbal orders and agree with the evaluation and treatment provided.Corrections: (The following items were deleted from the chart) 03/25 13:00 12:55 MAGNESIUM LEVEL+LAB ordered. EDWY EDMS 17:38 14:29 REGULAR+DIET ordered. EDWY EDMS Attachments: 15:13 [facility] Payment Agreement lg 11:56 T-Sheet-- Draft Copy gb 11:56 ECG/EKG gb Chart Complete MTDD
--- NOTE | 2016-03-27 20:56 | EDDOCDS ---
Nurse's Notes [facility] Name: Reymundo David Age: 45 yrs Sex: Female : 1970 Arrival Date: 03/25/2016 Time: 11:32 Bed TR7 Private MD: Diagnosis: Syncope and collapse-near syncope;Encounter for examination of blood pressure-hypertensive episode, now improved Presentation: 03/25 11:39 Presenting complaint: EMS states: pt with near syncopal episode while at Dr. Mendez kc3 office. EMS reported pt was dizzy and weak. Pt reports felt lethargic. Transition of care: patient was received from Dr. Mendez. 11:39 Acuity: MICHEL Level 3 kc3 11:39 Method Of Arrival: Ambulance 3 11:57 Adult Sepsis Screening: The patient does not have new or worsening altered mentation. kc3 Patient's respiratory rate is less than 22. Systolic blood pressure is greater than 100. Patient has a qSOFA score of 0- Negative Sepsis Screen. Suicide/Homicide risk assessment- the patient denies having any suicidal and/or homicidal ideations and does not present with any other emotional, behavioral or mental health complaints. 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 Triage Assessment: 11:57 General: Appears in no apparent distress, comfortable, Behavior is appropriate for age, kc3 cooperative. Pain: Location: headache Pain currently is 4 out of 10 on a pain scale. HIV screening NA for this visit Offered previously. The patient is triaged at the bedside. See Assessment in Nurses Notes section of ED record. Neurological: Level of Consciousness is awake, alert, obeys commands, Oriented to person, place, time. Cardiovascular: Rhythm is sinus bradycardia No ectopy. Respiratory: Respiratory effort is even, unlabored, Respiratory pattern is regular, symmetrical. GI: Reports nausea. Derm: Skin is pink, warm & dry. Musculoskeletal: Circulation, motion, and sensation intact. 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 meloxicam 15 mg oral tab once daily (Last dose: 03/24/2016) 2. atorvastatin 20 mg oral tab 1 tab once daily (Last dose: 03/24/2016) 3. duloxetine 30 mg Oral cpDR 1 cap once daily (Last dose: 03/24/2016) 4. omega complete daily 5. calcium vitamin d3 daily 6. gingkgo biloba daily - PMHx: Emphysema; Hypercholesterolemia; Migraines; Chiari Malformation; - PSHx: emobolus removal from lung; Carpal Tunnel Repair- Bilateral; - Social history: Smoking status: Patient uses tobacco products, heavy tobacco smoker. No barriers to communication noted, The patient speaks fluent Malawian, Speaks appropriately for age. - Family history: Not pertinent. - : The pt / caregiver states he / she is not on anticoagulants. Home medication list is obtained from the patient. - Exposure Risk Screening:: None identified. Screenin:58 Screening information is obtained from the patient. Fall risk: At risk due to near kc3 syncope. The following interventions are performed due to a positive Fall Risk Screen: Fall Risk is added to Special Handling on the patient Summary Screen. A Fall Risk Bracelet was applied to the patient. Side Rails are placed in the up position. A Call Simon is given with instruction to call for help when getting out of bed. Fall Alert bracelet is placed on the patient. Assistance ADL's: requires no assistance with activities of daily living. Abuse/DV Screen: The patient / caregiver reports he/she is: not in a situation that causes fear, pain or injury. Nutritional screening: No deficits noted. Advance Directives: Currently, there is no health care proxy. home support is adequate. Assessment: 12:20 General: See triage for initial assessment. . kc3 13:00 General: Appears in no apparent distress, comfortable, Behavior is appropriate for age, kc3 cooperative. General: Pt reported "several seconds of chest pain where my arms felt weak." Pt reports pain as non-radiating and has now resolved. Annalise Killian NP aware. . Pain: Denies pain. Neurological: Level of Consciousness is awake, alert, obeys commands, Oriented to person, place, time. Cardiovascular: Rhythm is sinus rhythm Chest pain is denied. Respiratory: Respiratory effort is even, unlabored. Derm: Skin is pink, warm & dry. 13:57 Adult Sepsis Screening: The patient does not have new or worsening altered mentation. kc3 Patient's respiratory rate is less than 22. Systolic blood pressure is greater than 100. Patient has a qSOFA score of 0- Negative Sepsis Screen. 14:05 General: Appears in no apparent distress, comfortable, Behavior is appropriate for age, kc3 cooperative. Pain: Denies pain. Neurological: Level of Consciousness is awake, alert, obeys commands. Cardiovascular: Rhythm is sinus rhythm. Respiratory: Respiratory effort is even, unlabored. Derm: Skin is pink, warm & dry. 14:45 General: Appears in no apparent distress, comfortable, Behavior is appropriate for age, kc3 cooperative. General: Pt given diet tray. . Pain: Denies pain. Neurological: Level of Consciousness is awake, alert, obeys commands. Respiratory: Respiratory effort is even, unlabored. 15:59 General: Appears in no apparent distress, comfortable, Behavior is appropriate for age, kc3 cooperative. Pain: Denies pain. Neurological: Level of Consciousness is awake, alert, obeys commands, Oriented to person, place, time. Cardiovascular: Rhythm is sinus rhythm. Respiratory: Respiratory effort is even, unlabored. Derm: Skin is pink, warm & dry. 17:06 General: Appears in no apparent distress, comfortable, Behavior is appropriate for age, kc3 cooperative. Pain: Denies pain. Neurological: Level of Consciousness is awake, alert, obeys commands, Oriented to person, place, time. Cardiovascular: Rhythm is sinus rhythm. Respiratory: Respiratory effort is even, unlabored. Derm: Skin is pink, warm & dry. 17:32 General: Admitting MD at bedside. . kc3 17:45 General: Report given to irvin nurse. . kc3 18:34 General: Appears in no apparent distress, comfortable, Behavior is appropriate for age, me3 cooperative. Neurological: Level of Consciousness is awake, alert, Oriented to person. Respiratory: Airway is patent Respiratory effort is even, unlabored. 19:54 General: Pt signed out AMA per Evonne Bowers RN irvin nurse.. sls1 Vital Signs: 11:49 BP 121 / 58; Pulse 56; Resp 18; Temp 99; Pulse Ox 97% on R/A; Weight 70.76 kg (R); ct3 Height 5 ft. 1 in. (154.94 cm) (R); Pain 0/10; 13:28 BP 114 / 66 RA Sitting (auto/reg); Pulse 77; Resp 18; Pulse Ox 96% on R/A; ct3 13:28 BP 118 / 56 RA Supine (auto/reg); Pulse 56; Resp 18; Temp 97.2(O); Pulse Ox 96% on R/A; ct3 Pain 0/10; 13:28 BP 103 / 69 RA Standing (auto/reg); Pulse 77; Resp 18; Pulse Ox 96% on R/A; ct3 14:46 Pulse 70 MON; Pulse Ox 95% ; kc3 14:47 BP 129 / 69 (auto/); kc3 15:17 BP 111 / 58 (auto/); kc3 15:17 Pulse 64 MON; Pulse Ox 96% ; kc3 15:46 Pulse 64 MON; Pulse Ox 95% ; kc3 15:47 BP 111 / 55 (auto/); kc3 16:17 BP 133 / 58 (auto/); kc3 16:17 Pulse 64 MON; Pulse Ox 94% ; kc3 16:47 BP 112 / 70 (auto/); kc3 16:47 Pulse 62 MON; Pulse Ox 95% ; kc3 17:18 BP 127 / 59 (auto/); kc3 17:18 Pulse 58 MON; Pulse Ox 95% ; kc3 11:49 Body Mass Index 29.48 (70.76 kg, 154.94 cm) ct3 Vitals: 11:49 Log In Time N/A - ambulance arrival. ct3 ED Course: 11:33 Patient visited by Celia Lynn, Linecasting Machine Keyboard Operator. deg 11:33 Patient moved to Waiting deg 11:34 Edie Wu,RN is Primary Nurse. deg 11:34 Patient moved to 11 deg 11:40 Triage Initiated kc3 11:40 Maintain field IV. Dressing intact. Site clean & dry. Gauge & site: 18g left AC. kc3 11:49 Patient has correct armband on for positive identification. Placed in gown. Bed in low ct3 position. Call light in reach. Side rails up X2. teletypesetter monitor on. Pulse ox on. NIBP on. 11:50 Patient visited by Tamela Montoya PCA. ct3 11:58 The patient / caregiver is instructed regarding the plan of care and ED course. kc3 12:26 Patient visited by Edie Wu,SHRADDHA. kc3 12:35 Annalise Killian FNP is PHCP. le 12:40 Patient visited by Annalise Killian FNP. le 12:41 Patient visited by Annalise Killian FNP. le 13:13 Patient visited by Shreyas Aguirre PCA. jlf 13:31 Patient visited by Tamela Montoya PCA. ct3 13:32 Chest, 1 View Returned. EDMS 14:06 Patient visited by Edie Wu,SHRADDHA. kc3 14:47 Patient visited by Edie Wu,SHRADDHA. kc3 14:55 Natty Bo is Hospitalizing Provider. le 14:59 Patient visited by Edie Wu RN. kc3 15:01 Patient visited by Edie Wu,SHRADDHA. kc3 15:13 Patient name changed from Reymundo\\S\\\\S\\Frankie\\S\\ to Reymundo\\S\\M\\S\\[place]. EDMS 15:13 [facility] Payment Agreement was scanned into [employer] and attached to record. lg 15:17 Patient moved to Admit Hold js13 17:07 Patient visited by Edie Wu,SHRADDHA. kc3 17:13 Chest, 1 View Returned. EDMS 17:14 CT Chest Angio R/O PE Returned. EDMS 17:32 Patient visited by Edie Wu RN. kc3 17:37 Patient moved to I9 / kcs 17:46 Patient visited by Edie Wu RN. kc3 17:50 EKG-ADULT Returned. EDMS 17:58 Patient moved to Ultrasound hgl 18:04 Patient moved to Admit Hold js13 18:35 Diet: Patient given regular meal. Tolerated well. me3 19:53 Patient moved to 7 [facility] 03/26 03:36 Duplex,carotid (complete) Returned. EDMS 11:56 Refusal of Services was scanned into [employer] and attached to record. gb 11:56 T-Sheet-- Draft Copy was scanned into [employer] and attached to record. gb 11:56 ECG/EKG was scanned into [employer] and attached to record. gb 11:57 Rhythm Strip was scanned into [employer] and attached to record. gb Attachments: 03/26 11:56 Refusal of Services gb 11:57 Rhythm Strip gb Order Results: Lab Order: CBC with Diff; SPEC'M 03/25/16 12:05 Test: WHITE BLOOD COUNT; Value: 9.7; Range: 4.0-10.0; Units: K/mm3; Status: F Test: RED BLOOD COUNT; Value: 4.71; Range: 4.00-5.40; Units: M/mm3; Status: F Test: HEMOGLOBIN; Value: 14.2; Range: 12.0-16.0; Units: g/dl; Status: F Test: HEMATOCRIT; Value: 43.3; Range: 36.0-47.0; Units: %; Status: F Test: MEAN CORPUSCULAR VOLUME; Value: 92.1; Range: 80.0-96.0; Units: fl; Status: F Test: MEAN CORPUSCULAR HEMOGLOBIN; Value: 30.2; Range: 27.0-33.0; Units: pg; Status: F Test: MEAN CORPUSCULAR HGB CONC; Value: 32.8; Range: 32.0-36.5; Units: g/dl; Status: F Test: RED CELL DISTRIBUTION WIDTH; Value: 13.8; Range: 11.5-14.5; Units: %; Status: F Test: PLATELET COUNT, AUTOMATED; Value: 235; Range: 150-450; Units: k/mm3; Status: F Test: NEUTROPHILS %; Value: 61.8; Range: 36.0-66.0; Units: %; Status: F Test: LYMPH %; Value: 27.8; Range: 24.0-44.0; Units: %; Status: F Test: MONO %; Value: 3.5; Range: 0.0-5.0; Units: %; Status: F Test: EOS %; Value: 3.0; Range: 0.0-3.0; Units: %; Status: F Test: BASO %; Value: 2.4; Range: 0.0-1.0; Abnormal: Above high normal; Units: %; Status: F Test: LARGE UNSTAINED CELL %; Value: 1.6; Range: 0.0-4.0; Units: %; Status: F Test: NEUTROPHILS #; Value: 6.0; Range: 1.8-7.7; Units: K/mm3; Status: F Test: LYMPH #; Value: 2.8; Range: 1.5-4.5; Units: K/mm3; Status: F Test: MONO #; Value: 0.3; Range: 0.0-0.8; Units: K/mm3; Status: F Test: EOS #; Value: 0.3; Range: 0.0-0.50; Units: K/mm3; Status: F Test: BASO #; Value: 0.2; Range: 0.0-0.2; Units: K/mm3; Status: F Test: LARGE UNSTAINED CELL #; Value: 0.2; Range: 0.0-0.4; Units: K/mm3; Status: F Lab Order: MED Profile; SPEC'M 03/25/16 12:05 Test: GLUCOSE, FASTING; Value: 87; Range: 70-105; Units: MG/DL; Status: F Test: BLOOD UREA NITROGEN; Value: 10; Range: 7-18; Units: MG/DL; Status: F Test: CREATININE FOR GFR; Value: 0.68; Range: 0.55-1.02; Units: MG/DL; Status: F Test: GLOMERULAR FILTRATION RATE; Value: > 60.0; Range: >58; Status: F Test: SODIUM LEVEL; Value: 141; Range: 136-145; Units: MEQ/L; Status: F Test: POTASSIUM SERUM; Value: 4.0; Range: 3.5-5.1; Units: MEQ/L; Status: F Test: CHLORIDE LEVEL; Value: 108; Range: 98-107; Abnormal: Above high normal; Units: MEQ/L; Status: F Test: CARBON DIOXIDE LEVEL; Value: 26; Range: 21-32; Units: MEQ/L; Status: F Test: ANION GAP; Value: 7; Range: 8-16; Abnormal: Below low normal; Units: MEQ/L; Status: F Test: CALCIUM LEVEL; Value: 8.5; Range: 8.5-10.1; Units: MG/DL; Status: F Test Note: ; Units are mL/min/1.73 m2 Chronic Kidney Disease Staging per NKF: Stage I & II GFR >=60 Normal to Mildly Decreased Stage III GFR 30-59 Moderately Decreased Stage IV GFR 15-29 Severely Decreased Stage V GFR <15 Very Little GFR Left ESRD GFR <15 on HIDE GRADER Lab Order: CIP; SPEC'M 03/25/16 12:05 Test: CPK CREATINE PHOSPHOKINASE; Value: 206; Range: 26-192; Abnormal: Above high normal; Units: U/L; Status: F Test: CK-MB VALUE MASS; Value: 1.8; Range: 0.0-3.6; Units: NG/ML; Status: F Test: MB/CK RELATIVE INDEX; Value: 0.87; Range: < OR =4; Status: F Test Note: ; DIAGNOSIS CRITERIA MMB ng/ml Relative Index (RI) NON-AMI < or = 5 N/A KUNZ ZONE > 5 < or = 4 AMI > 5 > 4 Lab Order: Troponin; SPEC'M 03/25/16 12:05 Test: TROPONIN I; Value: < 0.02; Range: < 0.10; Units: NG/ML; Status: F Test Note: ; Troponin I Reference Interval for [employer] LOCI: 99th Percentile= 0.00-0.045 ng/ml Risk Stratification: <= 0.10 ng/ml Decreased Risk for Adverse Clinical Events. 0.10-1.50 ng/ml Increased Risk for Adverse Clinical Events. Evaluation of additional criterion and/or repeat testing in 2-6 hours is suggested to rule out myocardial damage. >= 1.50 ng/ml Indicative of Myocardial Injury. Lab Order: FreeT4 with TSH; SPEC'M 03/25/16 12:05 Test: THYROID STIMULATING HORMONE; Value: 1.120; Range: 0.358-3.740; Units: uIU/ML; Status: F Test: FREE T4; Value: 0.81; Range: 0.76-1.46; Units: NG/DL; Status: F Lab Order: D-Dimer Quant; SPEC'M 03/25/16 12:05 Test: D-DIMER QUANT; Value: 426.8; Range: <500; Units: ng/ml; Status: F Lab Order: MAGNESIUM LEVEL; SPEC'M 03/25/16 12:05 Test: MAGNESIUM LEVEL; Value: 2.3; Range: 1.8-2.4; Units: MG/DL; Status: F Radiology Order: EKG-ADULT Test: EKG-ADULT REASON FOR EXAMINATION: Syncope; Stationary ECG Study; [facility] - ED; ; Test Date: 2016-03-25; Pat Name: REYMUNDO DAVID Department:; Room: -; Gender: F Network Engineering Advisor: ct; : 1970 Requested By: Jaimie Ureña; Order Number: [id number] Reading MD: Marcus Montero; Measurements; Intervals [place]; Rate: 60 P: 27; WV: 128 QRS: 26; QRSD: 83 T: 7; QT: 455; QTc: 456; Interpretive Statements; SINUS RHYTHM; POSSIBLE INC. RBBB; NO PRIORS; Electronically Signed On 03-25-2016 17:35:45 EST by Marcus Montero; Radiology Order: Chest, 1 View Test: Chest, 1 View REASON FOR EXAMINATION: Syncope; PORTABLE CHEST:; ; AP portable view of the chest is performed and compared to multiple prior exams,; most recent of which is 11/04/2014 from [facility]. There is; bibasilar fibrotic change which is stable. No definite acute infiltrate is seen.; There is mild elevation of the left hemidiaphragm. Heart is normal in size and; the mediastinal silhouette is unchanged.; ; IMPRESSION:; ; Stable chronic bibasilar fibrotic changes without evidence of acute infiltrate.; ; ; Signed by; Brian Kunz MD 03/25/2016 05:04 P; Radiology Order: CT Chest Angio R/O PE Test: CT Chest Angio R/O PE REASON FOR EXAMINATION: eval for dissection; CT angiogram of the chest abdomen and pelvis : With IV contrast:; ; History: Evaluate for dissection.; ; Comparison studies: Comparison CT study of the chest without contrast is from; 12/16/2014.; ; Contrast dose: 100 mL of Isovue-370 are administered intravenously.; ; CT technique: Helical scanning is acquired and overlapping 1.5 mm and contiguous; 3 mm axial images are reformatted. In addition, a 3-D work station is deployed; to generate thick slab maximum intensity projection images in sagittal and; coronal imaging projections.; ; CT angiographic findings: The thoracic aorta is normal in coarse, contour, and; caliber and enhances homogeneously. There is no evidence of thoracic aortic; dissection. Great vessels are unremarkable. There is good opacification of the; pulmonary arterial tree as well as the and there is no CT evidence of pulmonary; embolism. The abdominal aorta enhances homogeneously and shows atherosclerotic; vascular changes with calcified pleural plaquing but no evidence of dissection or; aneurysm. The common iliac, internal iliac, and external iliac arteries are; widely patent bilaterally showing mild atherosclerotic changes. The celiac,; superior mesenteric, renal, and inferior mesenteric arteries are patent. The; right renal artery is duplicated with a smaller branch the lower pole. No renal; artery stenosis is seen.; ; Lung window settings demonstrate a peripheral pattern of subpleural emphysematous; changes in the upper lobes bilaterally. There is a post thoracotomy suture line; visible in the left upper lobe anteriorly. No pulmonary mass lesion is seen. No; new infiltrate is seen. The pulmonary parenchymal findings are unchanged and; compared with the prior CT study of 12/16/2014. No pleural effusion or; pericardial effusion is seen. There are scattered normal sized mediastinal lymph; nodes which are also unchanged. No focal liver lesion is seen. Spleen, adrenal; glands, and pancreas remain unremarkable. No renal abnormality is seen. Normal; appendix is noted behind the cecum. Uterus is retroverted and retroflexed tipped; somewhat to the right. Urinary bladder is intact. No significant bony; abnormality is seen.; ; Impression:; ; No CT evidence of aortic dissection or aneurysm or other acute vascular; abnormality. No CT evidence of pulmonary embolus.; ; ; Signed by; Brian Mahan MD 03/25/2016 05:15 P; Radiology Order: Duplex,carotid (complete) Test: Duplex,carotid (complete) REASON FOR EXAMINATION: near syncope; Clinical: Near-syncopal episode.; ; Comparison: 01/24/2014 .; ; Technique: Kunz scale and color Doppler evaluation using linear high frequency; transducer; ; Findings:; Two-dimensional kunz scale and color images demonstrate normal arterial lumen; with laminar flow and no appreciable narrowing. Color Doppler interrogation; demonstrates normal arterial wave patterns and velocities with no significant; spectral broadening. Normal flow direction is appreciated in the bilateral; vertebral arteries.; ; RIGHT (cm/s) LEFT (cm/s); ; ICA peak systolic velocity 54.9 91.1; ICA diastolic velocity 21.8 39.2; ECA peak systolic velocity 51.8 32.9; CCA peak systolic velocity 69.1 70.4; ICA/CCA ratio 0.79 1.29; ; Impression:; No hemodynamically significant areas of narrowing or stenosis appreciated.; Based on set standards narrowing falls within the normal range.; ; ; Signed by; Prince Bajwa MD 03/26/2016 03:26 A; Outcome: 03/25 15:00 Decision to Hospitalize by Provider. mary 17:07 CT Study completed. kc3 19:54 The following High Risk Discharge criteria are identified: Yes, pt signed out AMA. The sls1 patient is leaving AMA: AMA form signed, Notification of AMA status is made to the charge nurse, the social science research assistant, the ED attending physician, Other Dr Magdaleno. Condition: unknown. 19:55 Patient left the ED. [email or web address] Signatures: Dispatcher [employer] EDMS Kenna Rojas, RN RN kcs Celia Lynn, Linecasting Machine Keyboard Operator Unit deg Marcelino, Radha, Reg Reg gb Karina Tanner, Reg Reg lg Brielle Pan,OPTICAL LABORATORY MANAGER OPTICAL LABORATORY MANAGER me3 Annalise Killian, METHODS STUDY ANALYST METHODS STUDY ANALYST Tamela Cavanaugh, TELESALES AGENT TELESALES AGENT ct3 Meaghan Jarvis, RN RN sls1 Thao Patterson,RN RN js13 Ly, Jose hgl Shreyas Aguirre, TELESALES AGENT TELESALES AGENT jlf Edie Wu,RN RN kc3 Chart Complete MTDD
--- NOTE | 2016-03-27 20:56 | EDDOCDS ---
Physician Documentation [facility] Name: Ofe David Age: 45 yrs Sex: Female : 1970 Arrival Date: 03/25/2016 Time: 11:32 Bed TR7 Private MD: Disposition: 03/25/16 15:00 Hospitalization ordered by Natty Bo for Observation. Preliminary diagnosis are Syncope and collapse - near syncope, Encounter for examination of blood pressure - hypertensive episode, now improved. - Bed requested for Admit. - Status is Observation. sls1 - Condition is Stable. - Problem is an acute exacerbation. - Symptoms have improved. Historical: - Allergies: no known allergies; - Home Meds: 1. meloxicam 15 mg oral tab once daily (Last dose: 03/24/2016) 2. atorvastatin 20 mg oral tab 1 tab once daily (Last dose: 03/24/2016) 3. duloxetine 30 mg Oral cpDR 1 cap once daily (Last dose: 03/24/2016) 4. omega complete daily 5. calcium vitamin d3 daily 6. gingkgo biloba daily - PMHx: Emphysema; Hypercholesterolemia; Migraines; Chiari Malformation; - PSHx: emobolus removal from lung; Carpal Tunnel Repair- Bilateral; - Social history: Smoking status: Patient uses tobacco products, heavy tobacco smoker. No barriers to communication noted, The patient speaks fluent Lithuanian, Speaks appropriately for age. - Family history: Not pertinent. - : The pt / caregiver states he / she is not on anticoagulants. Home medication list is obtained from the patient. - Exposure Risk Screening:: None identified. 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 1 in. (154.94 cm) (R); Pain 0/10; 13:28 BP 114 / 66 RA Sitting (auto/reg); Pulse 77; Resp 18; Pulse Ox 96% on R/A; ct3 13:28 BP 118 / 56 RA Supine (auto/reg); Pulse 56; Resp 18; Temp 97.2(O); Pulse Ox 96% on R/A; ct3 Pain 0/10; 13:28 BP 103 / 69 RA Standing (auto/reg); Pulse 77; Resp 18; Pulse Ox 96% on R/A; ct3 14:46 Pulse 70 MON; Pulse Ox 95% ; kc3 14:47 BP 129 / 69 (auto/); kc3 15:17 BP 111 / 58 (auto/); kc3 15:17 Pulse 64 MON; Pulse Ox 96% ; kc3 15:46 Pulse 64 MON; Pulse Ox 95% ; kc3 15:47 BP 111 / 55 (auto/); kc3 16:17 BP 133 / 58 (auto/); kc3 16:17 Pulse 64 MON; Pulse Ox 94% ; kc3 16:47 BP 112 / 70 (auto/); kc3 16:47 Pulse 62 MON; Pulse Ox 95% ; kc3 17:18 BP 127 / 59 (auto/); kc3 17:18 Pulse 58 MON; Pulse Ox 95% ; kc3 11:49 Body Mass Index 29.48 (70.76 kg, 154.94 cm) ct3 MDM: 11:42 IV Saline Lock ordered. ml 11:42 Supervisor Airplane Flight Attendant/Pulse Ox/q 15 min VS ordered. ml 11:42 Rhythm Strip to chart ordered. ml 11:42 ECG WITH READING ER PHYS+CARDIAG ordered. EDMS 11:43 CBC with Diff Ordered. EDMS 11:43 MED Profile Ordered. EDMS 11:43 CIP Ordered. EDMS 11:43 Troponin Ordered. EDMS 11:43 FreeT4 with TSH Ordered. EDMS 11:44 Chest, 1 View Ordered. EDMS 12:36 Orthostatic VS ordered. le 12:54 BED REQUEST+ADM ordered. EDMS 12:54 D-Dimer Quant Ordered. EDMS 12:54 CBC with Diff Reviewed. le 12:54 MED Profile Reviewed. le 12:54 Troponin Reviewed. le 12:59 MED Profile Reviewed. le 12:59 CIP Reviewed. le 12:59 Troponin Reviewed. le 12:59 FreeT4 with TSH Reviewed. le 13:22 MED Profile Reviewed. le 13:22 CIP Reviewed. le 13:22 Troponin Reviewed. le 13:22 FreeT4 with TSH Reviewed. le 13:22 D-Dimer Quant Reviewed. le 13:22 MAGNESIUM LEVEL Reviewed. le 14:13 Financial registration complete. lg 14:40 Chest, 1 View Reviewed. le 15:10 CT Chest Angio R/O PE Ordered. EDMS 15:11 CT ANGIO ABD/PEL Ordered. EDMS 15:13 [facility] [place] Agreement was scanned into [employer] and attached to record. lg 17:38 ECHOCARD,DOPPLER/COLOR FLOW ordered. EDMS 17:38 2 GRAM SODIUM DIET ordered. EDMS 17:39 Duplex,carotid (complete) Ordered. EDMS 17:43 URINE METANEPHRINES RANDOM Ordered. EDMS 18:04 Admission / Observation Status ordered. EDMS 19:32 COMPLETE BLOOD COUNT Ordered. EDMS 19:32 BASIC METABOLIC PROFILE Ordered. EDMS 03/26 07:40 Attending Doctor Change: ordered. EDMS 07:40 CBC WITH DIFFERENTIAL Ordered. EDMS 07:40 BASIC METABOLIC PROFILE Ordered. EDMS 11:56 Refusal of Services was scanned into [employer] and attached to record. gb 11:56 T-Sheet-- Draft Copy was scanned into [employer] and attached to record. gb 11:56 ECG/EKG was scanned into [employer] and attached to record. gb 11:57 Rhythm Strip was scanned into [employer] and attached to record. gb Signatures: Dis[facility] MD ml Barnhardt, Gloria, Reg Reg gb Karina Tanner, Reg Reg lg Annalise Killian, Meaghan Bolden RN RN sls1 Edie Wu RN RN kc3 The chart was reviewed and I authenticate all verbal orders and agree with the evaluation and treatment provided.Corrections: (The following items were deleted from the chart) 03/25 13:00 12:55 MAGNESIUM LEVEL+LAB ordered. EDNV EDMS 17:38 14:29 REGULAR+DIET ordered. EDNV EDMS Attachments: 15:13 [facility] Payment Agreement lg 11:56 T-Sheet-- Draft Copy gb 11:56 ECG/EKG gb Chart Complete MTDD
== END 2016-03-26 18:18 | disposition home or self-care (01) ==
LOC: M ED 11:32 → M ED INP 18:02
PROVIDERS: ADMIT Internal Medicine; ATTEND General Practice
DX: I10 Essential (primary) hypertension (principal); Z53.29 Procedure and treatment not carried out because of patient's decision for other reasons; G93.5 Compression of brain; E78.4 Other hyperlipidemia; J43.9 Emphysema, unspecified; G43.909 Migraine, unspecified, not intractable, without status migrainosus; Z79.899 Other long term (current) drug therapy; M54.2 Cervicalgia; F17.210 Nicotine dependence, cigarettes, uncomplicated

== ENCOUNTER → 2016-09-06 | Outpatient (CLI) | payer OTHER ==
[~2016-09-06] MED LIST: ATOR1TAB21 PO; CALCCHW8 PO; CYMB1CAP5 PO; FISH5CAP PO; GINK120C3 PO; MELO15TA4 PO
--- NOTE | 2016-09-06 11:02 | REP ---
MR CINE VIEWS: HISTORY: Arnold-Chiari syndrome. A 2-D phase contrast CSF flow study was performed with a velocity encoding of 10 cm per second. CSF flow is present in the prepontine and medullary cisterns, anterior subarachnoid space at the cervicomedullary junction and aqueduct of Sylvius. The CSF flow appears normal. CSF flow is present in the subarachnoid space posterior to the cerebellar tonsils, outlet foramina and posterior subarachnoid space at the cervicomedullary junction. The CSF flow appears decreased. IMPRESSION: CSF flow study as described above. Signed by Sunil Paulson MD 09/06/2016 11:05 A
--- NOTE | 2016-09-06 11:06 | REP ---
MR CERVICAL SPINE WITHOUT CONTRAST: HISTORY: Arnold Chiari syndrome. COMPARISON: 12/16/2014. A disc bulge is present at the C3-4 level. There is minimal effacement of the thecal sac without spinal cord compression. Uncinate process hypertrophy is present on the right. This produces mild narrowing of the right C3 neural foramen. The left C3 neural foramen is patent. A disc bulge is present at the C4-5 level. There is minimal effacement of the thecal sac without spinal cord compression. The C4 neural foramina are patent. A disc bulge with associated osteophyte formation is present at the C5-6 level. There is moderate effacement of the thecal sac without spinal cord compression. Bilateral uncinate process hypertrophy is present. This produces mild narrowing of the C5 neural foramina. A disc bulge is present at the C6-7 level. There is minimal effacement of the thecal sac without spinal cord compression. The C6 neural foramina are patent. There i no other disc bulge or herniation. The remaining neural foramina are patent. The cerebellar tonsils extend 5 mm inferior through the foramen magnum consistent with cerebellar tonsillar ectopia. The spinal cord is normal in signal intensity. There is no syrinx. The C5-6 and C6-7 intervertebral discs are decreased in height consistent with disc degeneration. Normal signal intensity is present in the cervical vertebral bodies. IMPRESSION: 1. There is cervical spondylosis at the C3-4 through C6-7 levels without spinal cord compression. 2. Cerebellar tonsillar ectopia. There is no significant change compared to the previous study. Signed by Sunil Paulson MD 09/06/2016 11:31 A
--- NOTE | 2016-09-06 11:34 | REP ---
MR THORACIC SPINE WITHOUT CONTRAST: HISTORY: Arnold-Chiari syndrome. A small central disc protrusion is present at the T4-5 level. There is minimal effacement of the thecal sac without spinal cord compression. The T4 neural foramina are patent. A small left paracentral disc protrusion is present at the T6-7 level. There is minimal effacement of the thecal sac without spinal cord compression. The T6 neural foramina are patent. A small left paracentral disc protrusion is present at the T8-9 level. There is minimal effacement of the thecal sac without spinal cord compression. The T8 neural foramina are patent. There is no other disc bulge or herniation. The remaining neural foramina are patent. The spinal cord is normal in signal intensity. There is no syrinx. Normal signal intensity is present in the thoracic vertebral bodies. IMPRESSION: Small disc protrusions at the T4-5, T6-7 and T8-9 levels without spinal cord compression. Signed by Sunil Paulson MD 09/06/2016 11:41 A
--- NOTE | 2016-09-06 12:19 | REP ---
MR LUMBAR SPINE WITHOUT CONTRAST: HISTORY: Arnold-Chiari syndrome. Decreased signal intensity on T2-weighted images is present in the L3-4 and L4-5 intervertebral discs. The discs are decreased in height. These findings are consistent with disc degeneration. There is no disc bulge or herniation at the L1-2, L2-3, and L5-S1 levels. The nerves exit the neural foramina without compression. A diffuse disc bulge is present at the L3-4 level. There is minimal compression of the thecal sac. There is hypertrophy of the posterior articulating facets. The L3 nerves exit the neural foramina without compression. A diffuse disc bugle is present at the L4-5 level. There is minimal compression of the thecal sac. There is hypertrophy of the posterior articulating facets. The L4 nerves exit the neural foramina without compression. The conus medullaris is normal in appearance terminating at the level of the L1-2 intervertebral disc. Normal signal intensity is present in the lumbar vertebral bodies. IMPRESSION: Diffuse disc bulges at the L3-4 and L4-5 levels with minimal thecal sac compression. Signed by Sunil Paulson MD 09/06/2016 12:29 P
== END ==
LOC: M RAD 09:13
PROVIDERS: ATTEND Neurological Surgery
DX: Q07.00 Arnold-Chiari syndrome without spina bifida or hydrocephalus (principal); R51 Headache; M47.896 Other spondylosis, lumbar region; M51.26 Other intervertebral disc displacement, lumbar region; M51.24 Other intervertebral disc displacement, thoracic region

== ENCOUNTER → 2016-09-12 | Outpatient (REF) | payer OTHER ==
[2016-09-12 15:53] LABS: BASO # 0.1 K/mm3 (0.0-0.2); BASO % 0.9 % (0.0-1.0); EOS # 0.2 K/mm3 (0.0-0.50); EOS % 3.3 % (0.0-3.0); LARGE UNSTAINED CELL # 0.2 K/mm3 (0.0-0.4); LARGE UNSTAINED CELL % 2.1 % (0.0-4.0); LYMPH # 3.4 K/mm3 (1.5-4.5); MEAN CORPUSCULAR HEMOGLOBIN 31.5 pg (27.0-33.0); MEAN CORPUSCULAR HGB CONC 33.8 g/dl (32.0-36.5); MEAN CORPUSCULAR VOLUME 93.2 fl (80.0-96.0); MONO # 0.3 K/mm3 (0.0-0.8); MONO % 3.9 % (0.0-5.0); NEUTROPHILS # 3.3 K/mm3 (1.8-7.7); NEUTROPHILS % 44.8 % (36.0-66.0); PLATELET COUNT, AUTOMATED 241 k/mm3 (150-450); RED CELL DISTRIBUTION WIDTH 13.2 % (11.5-14.5); WHITE BLOOD COUNT 7.3 K/mm3 (4.0-10.0)
[2016-09-12 16:22] LABS: ERYTHROCYTE SEDIMENTATION RATE 29 mm/hr (0-20)
[2016-09-12 16:23] LABS: ALBUMIN 3.6 GM/DL (3.2-5.2); ALBUMIN/GLOBULIN RATIO 1.06 (1.00-1.93); ALKALINE PHOSPHATASE 115 U/L (45-117); ALT/SGPT 18 U/L (12-78); ANION GAP 5 MEQ/L (8-16); AST/SGOT 12 U/L (15-37); BILIRUBIN,TOTAL 0.3 MG/DL (0.2-1.0); BLOOD UREA NITROGEN 9 MG/DL (7-18); CALCIUM LEVEL 8.7 MG/DL (8.5-10.1); CARBON DIOXIDE LEVEL 27 MEQ/L (21-32); CHLORIDE LEVEL 105 MEQ/L (98-107); CREATININE FOR GFR 0.65 MG/DL (0.55-1.02); GLOMERULAR FILTRATION RATE > 60.0 (>58); GLUCOSE, FASTING 87 MG/DL (70-105); SODIUM LEVEL 137 MEQ/L (136-145)
[2016-09-16 00:06] LABS: Lyme Disease IgG/IgM Antibodie <0.91 ISR (0.00-0.90); Lyme Disease IgM Ab Quantitati <0.80 index (0.00-0.79)
== END ==
LOC: M LABDRAW1 15:29
PROVIDERS: ATTEND Internal Medicine Rheumatology
DX: M35.9 Systemic involvement of connective tissue, unspecified (principal); Z79.899 Other long term (current) drug therapy; R53.83 Other fatigue

== ENCOUNTER 2017-02-02 17:04 | Emergency (ER) | payer OTHER ==
[~2017-02-02] VITALS: Ht 157.5 cm; Wt 68.2 kg
[2017-02-02] MEDS ORDERED: KETOROLAC 60 MG/2 ML VIAL (J1885) IM ONE (18:00)
[2017-02-02] MEDS ORDERED: METHOCARBAMOL 750 MG TAB PO ONE (18:00)
[2017-02-02] MEDS ORDERED: ROBA500T PO (19:15)
[2017-02-02] MEDS ORDERED: NAPR500T3 PO (19:15)
[2017-02-02 19:41] VITALS: BP 134/76
== END 2017-02-02 19:43 | disposition home or self-care (01) ==
LOC: M ED 17:04
DX: G44.209 Tension-type headache, unspecified, not intractable (principal); M62.838 Other muscle spasm; Q07.00 Arnold-Chiari syndrome without spina bifida or hydrocephalus; J45.909 Unspecified asthma, uncomplicated; F41.9 Anxiety disorder, unspecified; F17.200 Nicotine dependence, unspecified, uncomplicated
CPT/HCPCS: 96372; 99283; J1885

== ENCOUNTER 2017-04-07 13:55 | Emergency (ER) | payer OTHER ==
[2017-04-07] MEDS: diphenhydrAMINE INJ 50MG/ML VIAL (J1200) IV ×2 (18:00)
[2017-04-07] MEDS: METOCLOPRAMIDE INJ 10MG/2ML VIAL (J2765) IV ×2 (18:00)
[2017-04-07] MEDS: NS 500 ML IV ×2 (18:00)
[2017-04-07] MEDS: KETOROLAC 30 MG/ML VIAL (J1885) IV ×2 (18:00)
== END 2017-04-07 19:25 | disposition home or self-care (01) ==
LOC: M ED 13:55
DX: G43.909 Migraine, unspecified, not intractable, without status migrainosus (principal); Q07.00 Arnold-Chiari syndrome without spina bifida or hydrocephalus; E78.00 Pure hypercholesterolemia, unspecified; F41.9 Anxiety disorder, unspecified; F17.200 Nicotine dependence, unspecified, uncomplicated; Z79.899 Other long term (current) drug therapy
CPT/HCPCS: J1200

== ENCOUNTER → 2017-05-21 | Outpatient (CLI) | payer OTHER | LOC: M RAD 11:51 | DX: R92.0 Mammographic microcalcification found on diagnostic imaging of breast (principal); N64.52 Nipple discharge | CPT/HCPCS: 77066 ==

== ENCOUNTER → 2017-06-18 | Outpatient (CLI) | payer OTHER ==
[~2017-06-18] MED LIST changes: -ATOR1TAB21 PO; -CALCCHW8 PO; -CYMB1CAP5 PO; -FISH5CAP PO; -GINK120C3 PO; +LIDOCAINE 1% MDV 20ML VIAL As Ordered; -MELO15TA4 PO
== END ==
LOC: M RADPRO 10:57
DX: N64.59 Other signs and symptoms in breast (principal); R92.0 Mammographic microcalcification found on diagnostic imaging of breast
CPT/HCPCS: 19081

== ENCOUNTER 2017-10-17 17:20 | Emergency (ER) | payer OTHER | END 2017-10-17 20:01 | disposition home or self-care (01) | LOC: M ED 17:20 | DX: M54.2 Cervicalgia (principal); V43.62XA Car passenger injured in collision with other type car in traffic accident, initial encounter; Y92.410 Unspecified street and highway as the place of occurrence of the external cause; W22.10XA Striking against or struck by unspecified automobile airbag, initial encounter; G93.5 Compression of brain; J45.909 Unspecified asthma, uncomplicated; F41.9 Anxiety disorder, unspecified; F17.200 Nicotine dependence, unspecified, uncomplicated; Z79.899 Other long term (current) drug therapy | CPT/HCPCS: 70450 ==

== ENCOUNTER → 2019-03-23 | Outpatient (CLI) | payer MEDICARE ==
[~2019-03-23] MED LIST changes: +ATOR1TAB21 PO; +CALCCHW8 PO; +CYMB1CAP5 PO; +FISH5CAP PO; +GINK120C3 PO; -LIDOCAINE 1% MDV 20ML VIAL As Ordered; +MELO15TA28 PO; +METH1TAB40; +NAPR-885 PO; +REGL10TA6 PO; +ROBA500T PO
--- NOTE | 2019-03-23 09:25 | REP ---
MRI left hip without contrast: History: Left hip pain. Osteoarthritis. Comparison is made with images obtained during CT study of the abdomen and pelvis March 25, 2016. MRI technique: Coronal T1 and T2-weighted scans were obtained of both hips. T2-weighted fat sat smaller field of view high resolution images of the left hip are obtained in all three planes. MRI findings: There is no evidence of avascular necrosis in either proximal femur. Cortical and medullary bone signal intensity are normal in the visualized bony pelvic ring. No uterine or adnexal soft tissue mass or adenopathy is seen in the pelvis. Urinary bladder is unremarkable. There is mild hypertrophy of the symphysis pubis anteriorly. There are osteoarthritic changes of the hips bilaterally. These are mild to moderate on the right and advanced on the left. On the right, there is subcortical cyst formation in the acetabulum and superior joint space narrowing. Some marginal spurring is seen on the femoral head. On the right there is also T2 hyperintensity along the greater trochanter in the extra osseous soft tissues consistent with tendonitis or bursitis. No significant joint effusion on the right. On the left, there is a left hip joint effusion. There is advanced joint space loss superiorly. Subcortical cyst formation is seen in the acetabulum. Flattening is noted in the femoral head and there is a large superior acetabular spur formed. There is degeneration in the acetabular labral cartilage to some degree. Femoral head osteoarthritic spurring is seen. Some subcortical sclerosis and cyst formation are seen in the femoral head. Impression: Moderate to advanced osteoarthritis left hip. Mild to moderate osteoarthritic changes right hip. Electronically Signed by Brian Mahan MD 03/23/2019 09:56 A
== END ==
LOC: M RAD 06:48
PROVIDERS: ATTEND Internal Medicine Rheumatology
DX: M16.0 Bilateral primary osteoarthritis of hip (principal)

== ENCOUNTER → 2019-04-01 | Outpatient (CLI) | payer MEDICARE ==
[2019-04-01 15:32] LABS: BASO # 0.1 10^3/uL (0.0-0.2); BASO % 1.2 % (0.0-1.0); EOS # 0.3 10^3/uL (0.0-0.5); EOS % 3.4 % (0.0-3.0); HEMATOCRIT 44.8 % (36.0-47.0); LYMPH # 3.6 10^3/uL (1.5-5.0); LYMPH % 46.6 % (24.0-44.0); MEAN CORPUSCULAR HEMOGLOBIN 30.6 pg (27.0-33.0); MEAN CORPUSCULAR HGB CONC 33.5 g/dl (32.0-36.5); MEAN CORPUSCULAR VOLUME 91.4 fl (80.0-96.0); MONO # 0.5 10^3/uL (0.0-0.8); MONO % 5.8 % (0.0-5.0); NEUTROPHILS # 3.3 10^3/uL (1.5-8.5); NEUTROPHILS % 42.9 % (36.0-66.0); PLATELET COUNT, AUTOMATED 292 10^3/uL (150-450); WHITE BLOOD COUNT 7.7 10^3/uL (4.0-10.0)
[2019-04-01 15:53] LABS: ERYTHROCYTE SEDIMENTATION RATE 30 mm/hr (0-20)
[2019-04-01 16:04] LABS: ALT/SGPT 23 U/L (12-78); BILIRUBIN,TOTAL 0.3 MG/DL (0.2-1.0); BLOOD UREA NITROGEN 8 MG/DL (7-18); C REACTIVE PROTEIN QUANTITATIV < 0.30 MG/DL (0.00-0.30); CALCIUM LEVEL 8.9 MG/DL (8.5-10.1); CARBON DIOXIDE LEVEL 29 MEQ/L (21-32); CHLORIDE LEVEL 106 MEQ/L (98-107); COMPLEMENT C4 21 MG/DL (10-40); CREATININE FOR GFR 0.86 MG/DL (0.55-1.30); GLOMERULAR FILTRATION RATE > 60.0 (>58); GLUCOSE, FASTING 70 MG/DL (70-100); POTASSIUM SERUM 4.1 MEQ/L (3.5-5.1); SODIUM LEVEL 140 MEQ/L (136-145); TOTAL PROTEIN 7.7 GM/DL (6.4-8.2)
[2019-04-05 14:09] LABS: ANA (HEP2) Negative (.); ANTI DS-DNA AB Negative (Negative); CYCLIC CITRULLINATED PEPTIDE > 250 units (0-19); RNP ANTIBODY < 0.2 AI (0.0-0.9); SMITHS ANTIBODY < 0.2 AI (0.0-0.9); SSA SJOGRENS A <0.2 AI (0.0-0.9); SSB SJOGRENS B <0.2 AI (0.0-0.9)
== END ==
LOC: M LAB 14:06
PROVIDERS: ATTEND Internal Medicine Rheumatology
DX: M79.7 Fibromyalgia (principal)

== ENCOUNTER → 2019-04-02 | Outpatient (REF) | payer MEDICARE ==
[2019-04-05 11:22] LABS: HEPATITIS B SURFACE ANTIGEN NEGATIVE (NEGATIVE); HEPATITIS C VIRUS ABY INDEX < 0.0 INDEX (<0.8)
== END ==
LOC: M SFHCRHEU 14:32
PROVIDERS: ATTEND Internal Medicine
DX: M05.79 Rheumatoid arthritis with rheumatoid factor of multiple sites without organ or systems involvement (principal)
CPT/HCPCS: 36415; 86480; 86704; 86803; 87340; G0463

== ENCOUNTER → 2019-08-03 | Outpatient (CLI) | payer MEDICARE ==
[2019-08-03 14:27] LABS: BASO # 0.1 10^3/uL (0.0-0.2); EOS # 0.3 10^3/uL (0.0-0.5); EOS % 3.1 % (0.0-3.0); HEMATOCRIT 42.4 % (36.0-47.0); HEMOGLOBIN 14.1 g/dl (12.0-15.5); LYMPH # 2.9 10^3/uL (1.5-5.0); LYMPH % 33.9 % (24.0-44.0); MEAN CORPUSCULAR HEMOGLOBIN 31.5 pg (27.0-33.0); MEAN CORPUSCULAR HGB CONC 33.3 g/dl (32.0-36.5); MEAN CORPUSCULAR VOLUME 94.9 fl (80.0-96.0); MONO # 0.5 10^3/uL (0.0-0.8); MONO % 5.5 % (0.0-5.0); NEUTROPHILS # 4.8 10^3/uL (1.5-8.5); NEUTROPHILS % 56.3 % (36.0-66.0); PLATELET COUNT, AUTOMATED 289 10^3/uL (150-450); RED BLOOD COUNT 4.47 10^6/uL (4.00-5.40); WHITE BLOOD COUNT 8.6 10^3/uL (4.0-10.0)
[2019-08-03 14:55] LABS: ALBUMIN 3.6 GM/DL (3.2-5.2); ALT/SGPT 28 U/L (12-78); BILIRUBIN,TOTAL 0.2 MG/DL (0.2-1.0); BLOOD UREA NITROGEN 16 MG/DL (7-18); C REACTIVE PROTEIN QUANTITATIV 0.32 MG/DL (0.00-0.30); CARBON DIOXIDE LEVEL 29 MEQ/L (21-32); CHLORIDE LEVEL 106 MEQ/L (98-107); GLOMERULAR FILTRATION RATE > 60.0 (>58); GLUCOSE, FASTING 88 MG/DL (70-100); POTASSIUM SERUM 4.4 MEQ/L (3.5-5.1); SODIUM LEVEL 140 MEQ/L (136-145)
[2019-08-03 15:20] LABS: ERYTHROCYTE SEDIMENTATION RATE 25 mm/hr (0-20)
== END ==
LOC: M LAB 13:40
PROVIDERS: ATTEND Internal Medicine
DX: M05.79 Rheumatoid arthritis with rheumatoid factor of multiple sites without organ or systems involvement (principal)

== ENCOUNTER → 2019-11-11 | Outpatient (CLI) | payer MEDICARE, MEDICAID ==
[2019-11-11 17:03] LABS: BASO # 0.1 10^3/uL (0.0-0.2); BASO % 0.5 % (0.0-1.0); EOS # 0.2 10^3/uL (0.0-0.5); EOS % 1.5 % (0.0-3.0); HEMOGLOBIN 14.5 g/dl (12.0-15.5); LYMPH # 3.2 10^3/uL (1.5-5.0); LYMPH % 21.4 % (24.0-44.0); MEAN CORPUSCULAR HEMOGLOBIN 32.4 pg (27.0-33.0); MEAN CORPUSCULAR HGB CONC 33.7 g/dl (32.0-36.5); MONO % 6.3 % (0.0-5.0); NEUTROPHILS # 10.6 10^3/uL (1.5-8.5); PLATELET COUNT, AUTOMATED 284 10^3/uL (150-450); RED BLOOD COUNT 4.48 10^6/uL (4.00-5.40); WHITE BLOOD COUNT 15.1 10^3/uL (4.0-10.0)
[2019-11-11 17:13] LABS: ALBUMIN 3.6 GM/DL (3.2-5.2); ALT/SGPT 28 U/L (12-78); BILIRUBIN,TOTAL 0.3 MG/DL (0.2-1.0); BLOOD UREA NITROGEN 13 MG/DL (7-18); CALCIUM LEVEL 8.9 MG/DL (8.5-10.1); CARBON DIOXIDE LEVEL 29 MEQ/L (21-32); CHLORIDE LEVEL 106 MEQ/L (98-107); CREATININE FOR GFR 0.65 MG/DL (0.55-1.30); GLOMERULAR FILTRATION RATE > 60.0 (>58); GLUCOSE, FASTING 87 MG/DL (70-100); POTASSIUM SERUM 4.1 MEQ/L (3.5-5.1); SODIUM LEVEL 138 MEQ/L (136-145); TOTAL PROTEIN 7.2 GM/DL (6.4-8.2)
[2019-11-11 17:53] LABS: ERYTHROCYTE SEDIMENTATION RATE 28 mm/hr (0-20)
== END ==
LOC: M LAB 15:01
PROVIDERS: ATTEND Internal Medicine
DX: M05.79 Rheumatoid arthritis with rheumatoid factor of multiple sites without organ or systems involvement (principal)

== ENCOUNTER → 2019-11-25 | Outpatient (CLI) | payer MEDICARE, MEDICAID ==
--- NOTE | 2019-12-07 11:49 | DEXA ---
AP SPINE L1 - L4 1.046 -1.2 -0.9 LT FEMUR TOTAL 0.954 -0.4 0.0 LT NECK 0.938 -0.7 0.0 RT FEMUR TOTAL 1.059 0.4 0.8 RT NECK 0.997 -0.3 0.5 TOTAL BODY TOTAL OTHER COMMENTS: Normal bone densitometry of the hips. There is low bone density of the spine. The density of the spine is decreased 8.8% since 11/30/2009. The decreased density of the spine does represent significant change. FOLLOW-UP: Recommendation for the next bone density exam: 2 years. RYAN
== END ==
LOC: M WHC 15:32
PROVIDERS: ATTEND Internal Medicine
DX: M85.88 Other specified disorders of bone density and structure, other site (principal); Z87.81 Personal history of (healed) traumatic fracture

== ENCOUNTER → 2019-12-13 | Outpatient (REF) | payer MEDICARE, MEDICAID ==
[2019-12-13 13:50] LABS: HEMATOCRIT 44.9 % (36.0-47.0); HEMOGLOBIN 14.7 g/dl (12.0-15.5); MEAN CORPUSCULAR HEMOGLOBIN 31.3 pg (27.0-33.0); MEAN CORPUSCULAR HGB CONC 32.7 g/dl (32.0-36.5); MEAN CORPUSCULAR VOLUME 95.5 fl (80.0-96.0); PLATELET COUNT, AUTOMATED 285 10^3/uL (150-450); WHITE BLOOD COUNT 8.3 10^3/uL (4.0-10.0)
[2019-12-13 14:32] LABS: ALBUMIN 3.8 GM/DL (3.2-5.2); ALT/SGPT 26 U/L (12-78); BILIRUBIN,TOTAL 0.4 MG/DL (0.2-1.0); BLOOD UREA NITROGEN 12 MG/DL (7-18); CALCIUM LEVEL 9.3 MG/DL (8.5-10.1); CARBON DIOXIDE LEVEL 30 MEQ/L (21-32); CHLORIDE LEVEL 104 MEQ/L (98-107); CHOLESTEROL LEVEL 332 MG/DL (<200); CHOLESTEROL RISK RATIO 7.545 (<5); CREATININE FOR GFR 0.76 MG/DL (0.55-1.30); GLOMERULAR FILTRATION RATE > 60.0 (>58); GLUCOSE, FASTING 85 MG/DL (70-100); HDL CHOLESTEROL 44 MG/DL (>40); LDL CHOLESTEROL 258 MG/DL (<100); NON-HDL-C 288 MG/DL; POTASSIUM SERUM 4.9 MEQ/L (3.5-5.1); SODIUM LEVEL 139 MEQ/L (136-145); TOTAL 25(OH) VITAMIN D 33.9 NG/ML (30.0-100.0); TOTAL PROTEIN 7.2 GM/DL (6.4-8.2); TRIGLYCERIDES LEVEL 150 MG/DL (<150)
== END ==
LOC: M SFHCPLAZ 11:38
PROVIDERS: ATTEND Nurse Practitioner Adult Health
DX: R35.0 Frequency of micturition (principal); E78.2 Mixed hyperlipidemia; M05.79 Rheumatoid arthritis with rheumatoid factor of multiple sites without organ or systems involvement; Z13.29 Encounter for screening for other suspected endocrine disorder; Z13.21 Encounter for screening for nutritional disorder; Z79.899 Other long term (current) drug therapy
CPT/HCPCS: 36415; 80053; 80061; 81002; 82306; 84443; 85027; 87086; G0463

== ENCOUNTER → 2019-12-29 | Outpatient (REF) | payer MEDICARE, MEDICAID | LOC: M LAB REF 18:35 | PROVIDERS: ATTEND Obstetrics & Gynecology | DX: R87.611 Atypical squamous cells cannot exclude high grade squamous intraepithelial lesion on cytologic smear of cervix (ASC-H) (principal); R87.810 Cervical high risk human papillomavirus (HPV) DNA test positive; Z12.4 Encounter for screening for malignant neoplasm of cervix | CPT/HCPCS: 57454; 87624; 88305; G0123 ==

== ENCOUNTER → 2020-01-29 | Outpatient (CLI) | payer MEDICARE, MEDICAID ==
[~2020-01-29] MED LIST changes: +HUMI40IN2 SQ; +METH2.5T48 PO; +MULTCAP PO; +NOXI1TAB PO; +TUMERIC; +VITA100T59 PO
== END ==
LOC: M LABSMTC 10:17
PROVIDERS: ATTEND Anesthesiology
DX: Z01.812 Encounter for preprocedural laboratory examination (principal); Z20.828 Contact with and (suspected) exposure to other viral communicable diseases

== ENCOUNTER 2020-02-02 10:10 | Day surgery (SDC) | payer MEDICARE, MEDICAID ==
[~2020-02-02] VITALS: Ht 157.5 cm; Wt 71.2 kg
[~2020-02-02 10:10] MED LIST changes: +LR 1,000 ML IV ONE
[2020-02-02 10:50] LABS: HEMATOCRIT 44.3 % (36.0-47.0); HEMOGLOBIN 14.4 g/dl (12.0-15.5); MEAN CORPUSCULAR HGB CONC 32.5 g/dl (32.0-36.5); MEAN CORPUSCULAR VOLUME 95.3 fl (80.0-96.0); PLATELET COUNT, AUTOMATED 252 10^3/uL (150-450); RED BLOOD COUNT 4.65 10^6/uL (4.00-5.40); WHITE BLOOD COUNT 7.5 10^3/uL (4.0-10.0)
[2020-02-02] MEDS ORDERED: ONDANSETRON 4MG/2ML VIAL As Ordered ONE (12:26)
[2020-02-02] MEDS ORDERED: dexameTHASONE 4 MG/ML 1ML VIAL (J1100 PER 1MG) As Ordered ONE (12:26)
[2020-02-02] MEDS ORDERED: propofoL 200 MG/20 ML VIAL As Ordered ONE (12:26)
[2020-02-02] MEDS ORDERED: LIDOCAINE 2% 100MG/5ML SDV (FOR ANES.) As Ordered ONE (12:26)
[2020-02-02] MEDS ORDERED: KETOROLAC 60MG 2ML VIAL As Ordered ONE (12:26)
[2020-02-02] MEDS ORDERED: MIDAZOLAM INJ 2MG/2ML VIAL (J2250 PER 1MG) As Ordered ONE (12:27)
[2020-02-02] MEDS ORDERED: fentaNYL 100 MCG/2 ML INJECTION (J3010) As Ordered ONE (12:27)
[2020-02-02] MEDS ORDERED: IODINE STRONG SOLN 15 ML BTL As Ordered ONE (12:31)
[2020-02-02] MEDS ORDERED: LIDOCAINE W/EPINEPHRINE 1% 20ML VIAL As Ordered ONE (12:31)
[2020-02-02] MEDS ORDERED: SILVER NITRATE APPLICATOR As Ordered ONE (12:32)
[2020-02-02] MEDS ORDERED: ACETAMINOPHEN 1000MG 100ML IV BTL (OFIRMEV) (J0131 PER 10MG) As Ordered ONE (13:13)
--- NOTE | 2020-02-02 13:34 | ROOPDOC ---
[facility] Report Of Operation Report of Operation DATE OF OPERATION: 02/02/2020 PREOPERATIVE DIAGNOSIS: Cervical intraepithelial neoplasia 2-3 POSTOPERATIVE DIAGNOSIS: Same PROCEDURE PERFORMED: Loop electrosurgical excision procedure (LEEP) SURGEON: Levar Ortiz DO SECURITY COORDINATOR: None. ANESTHESIA: Intravenous (IV) sedation with local anesthesia/paracervical block. SPECIMEN(S) SENT TO PATHOLOGY: Bottom half of the cervix with squamocolumnar junction. Top half of the cervix with the squamocolumnar junction. ESTIMATED BLOOD LOSS: 20 mL. FLUIDS PLACED: 300 mL. DRAINS: In and out catheter, 100 mL. URINE OUTPUT: None. COMPLICATIONS: None. ANTIBIOTICS: None indicated. INTRAOPERATIVE FINDINGS: INDICATIONS: GABBY-2-3. DESCRIPTION OF PROCEDURE: The patient was counseled and consented on the risks, benefits, indications, and alternatives of the procedure. Informed consent was obtained. She was taken to the operating room with an IV running in placed on the operating table and then dorsal supine position. Anesthesia was found to be adequate. She was placed in the high lithotomy position. She was prepared and draped in normal sterile fashion. Time-out was performed per protocol. The bladder was drained with sterile in and out catheter. A coated Graves speculum was placed into the vagina with good visualization of the cervix. The cervix was coated with acetic acid and the dysplasia was evident even without colposcopy. The size 20 mm x 10 mm loop was used to excise the bottom half of the cervix at the level of the squamocolumnar junction. In a similar fashion the top half of the cervix including the squamocolumnar junction was excised with the same loop, and these two specimens were sent separately to pathology. The remaining raw cervix was cauterized with a roller ball cautery. Excellent hemostasis was noted. Monsel solution was applied to ensure hemostasis. Paracervical block was performed for postoperative comfort. Ten mL of 1% Lidocaine with epinephrine used. Sponge, needle, and instrument counts were correct per protocol. The patient tolerated the entire procedure very well. She was transferred to the PACU in good and stable condition. LEVAR ORTIZ DO Feb 02, 2020 13:34
[2020-02-02] MEDS ORDERED: oxyCODONE 5MG TAB PO PRN (14:00)
[2020-02-02] MEDS ORDERED: ONDANSETRON 4MG/2ML VIAL IV PRN (14:00)
[2020-02-02] MEDS ORDERED: LR 1,000 ML IV SCH ×2 (14:00)
[2020-02-02] MEDS ORDERED: fentaNYL 100 MCG/2 ML INJECTION (J3010) IV PRN (14:00)
[2020-02-02 14:28] VITALS: BP 131/68
== END 2020-02-02 15:02 | disposition home or self-care (01) ==
LOC: M SDC 10:10
PROVIDERS: ATTEND Obstetrics & Gynecology
DX: N87.1 Moderate cervical dysplasia (principal); M81.0 Age-related osteoporosis without current pathological fracture; F41.9 Anxiety disorder, unspecified; Z79.899 Other long term (current) drug therapy; E78.00 Pure hypercholesterolemia, unspecified; J43.9 Emphysema, unspecified; Q07.00 Arnold-Chiari syndrome without spina bifida or hydrocephalus
CPT/HCPCS: 36415; 57522; 85027; 86850; 86900; 86901; 88307; J0131; J1100; J1885; J2250; J2405; J3010

== ENCOUNTER → 2020-05-11 | Outpatient (REF) | payer MEDICARE, MEDICAID ==
[~2020-05-11] MED LIST changes: -LR 1,000 ML IV ONE; +METH-1164; -METH1TAB40
[2020-05-11 14:37] LABS: HEMATOCRIT 43.7 % (36.0-47.0); HEMOGLOBIN 14.5 g/dl (12.0-15.5); MEAN CORPUSCULAR HEMOGLOBIN 31.5 pg (27.0-33.0); MEAN CORPUSCULAR HGB CONC 33.2 g/dl (32.0-36.5); MEAN CORPUSCULAR VOLUME 94.8 fl (80.0-96.0); PLATELET COUNT, AUTOMATED 281 10^3/uL (150-450); RED BLOOD COUNT 4.61 10^6/uL (4.00-5.40); WHITE BLOOD COUNT 7.4 10^3/uL (4.0-10.0)
[2020-05-11 15:03] LABS: ERYTHROCYTE SEDIMENTATION RATE 43 mm/hr (0-20)
[2020-05-11 15:13] LABS: ALT/SGPT 44 U/L (12-78); BILIRUBIN,TOTAL 0.4 MG/DL (0.2-1.0); BLOOD UREA NITROGEN 12 MG/DL (7-18); CALCIUM LEVEL 9.6 MG/DL (8.5-10.1); CARBON DIOXIDE LEVEL 29 MEQ/L (21-32); CHLORIDE LEVEL 107 MEQ/L (98-107); GLOMERULAR FILTRATION RATE > 60.0 (>58); GLUCOSE, FASTING 92 MG/DL (70-100); POTASSIUM SERUM 4.8 MEQ/L (3.5-5.1); SODIUM LEVEL 139 MEQ/L (136-145); TOTAL PROTEIN 7.7 GM/DL (6.4-8.2)
[2020-05-11 15:18] LABS: TOTAL 25(OH) VITAMIN D 34.3 NG/ML (30.0-100.0)
== END ==
LOC: M SFHCPLAZ 11:26
PROVIDERS: ATTEND Nurse Practitioner Adult Health
DX: M79.7 Fibromyalgia (principal); M05.79 Rheumatoid arthritis with rheumatoid factor of multiple sites without organ or systems involvement; Z13.29 Encounter for screening for other suspected endocrine disorder; Z13.21 Encounter for screening for nutritional disorder; Z79.899 Other long term (current) drug therapy

== ENCOUNTER → 2020-07-04 | Outpatient (CLI) | payer MEDICAID, MEDICARE ==
[~2020-07-04] MED LIST changes: +ISOVUE-300 61% 50ML VIAL As Ordered ONE; +LIDOCAINE 1% MDV 20ML VIAL As Ordered ONE; +TRIAMCINOLONE ACETONIDE SUSP 40 MG/ML VIAL (J3301) As Ordered ONE
== END ==
LOC: M RADPRO 10:52
PROVIDERS: ATTEND Physician Assistant
DX: M16.12 Unilateral primary osteoarthritis, left hip (principal); Z53.8 Procedure and treatment not carried out for other reasons

== ENCOUNTER → 2020-08-15 | Outpatient (REF) | payer MEDICARE, MEDICAID ==
[~2020-08-15] MED LIST changes: -ISOVUE-300 61% 50ML VIAL As Ordered ONE; -LIDOCAINE 1% MDV 20ML VIAL As Ordered ONE; -TRIAMCINOLONE ACETONIDE SUSP 40 MG/ML VIAL (J3301) As Ordered ONE
[2020-08-15 16:44] LABS: BASO # 0.1 10^3/uL (0.0-0.2); BASO % 0.7 % (0.0-1.0); EOS # 0.4 10^3/uL (0.0-0.5); EOS % 4.1 % (0.0-3.0); HEMATOCRIT 43.4 % (36.0-47.0); HEMOGLOBIN 14.5 g/dl (12.0-15.5); LYMPH # 3.7 10^3/uL (1.5-5.0); LYMPH % 38.4 % (24.0-44.0); MEAN CORPUSCULAR HEMOGLOBIN 31.8 pg (27.0-33.0); MEAN CORPUSCULAR HGB CONC 33.4 g/dl (32.0-36.5); MEAN CORPUSCULAR VOLUME 95.2 fl (80.0-96.0); MONO # 0.5 10^3/uL (0.0-0.8); MONO % 5.5 % (2.0-8.0); NEUTROPHILS # 4.9 10^3/uL (1.5-8.5); PLATELET COUNT, AUTOMATED 267 10^3/uL (150-450); RED BLOOD COUNT 4.56 10^6/uL (4.00-5.40); WHITE BLOOD COUNT 9.7 10^3/uL (4.0-10.0)
[2020-08-15 17:24] LABS: BLOOD UREA NITROGEN 8 MG/DL (7-18); CALCIUM LEVEL 9.4 MG/DL (8.5-10.1); CARBON DIOXIDE LEVEL 28 MEQ/L (21-32); CHLORIDE LEVEL 108 MEQ/L (98-107); CREATININE FOR GFR 0.62 MG/DL (0.55-1.30); GLOMERULAR FILTRATION RATE > 60.0 (>51); GLUCOSE, FASTING 94 MG/DL (70-100); POTASSIUM SERUM 4.2 MEQ/L (3.5-5.1); SODIUM LEVEL 141 MEQ/L (136-145)
[2020-08-15 17:25] LABS: ALBUMIN 3.9 GM/DL (3.2-5.2); ALT/SGPT 26 U/L (12-78); BILIRUBIN,TOTAL 0.2 MG/DL (0.2-1.0); TOTAL PROTEIN 7.5 GM/DL (6.4-8.2)
[2020-08-15 17:58] LABS: ERYTHROCYTE SEDIMENTATION RATE 35 mm/hr (0-30)
== END ==
LOC: M SFHCRHEU 15:44
PROVIDERS: ATTEND Internal Medicine Rheumatology
DX: M05.79 Rheumatoid arthritis with rheumatoid factor of multiple sites without organ or systems involvement (principal); R79.89 Other specified abnormal findings of blood chemistry; Z79.899 Other long term (current) drug therapy
CPT/HCPCS: 80053; 85025; 85652; 86140; 86480; G0463

== ENCOUNTER → 2021-02-13 | Outpatient (REF) | payer MEDICARE, MEDICAID | LOC: M SFHCWAGY 17:13 | PROVIDERS: ATTEND Obstetrics & Gynecology | DX: Z12.4 Encounter for screening for malignant neoplasm of cervix (principal) | CPT/HCPCS: 87624; G0101; G0123 ==

== ENCOUNTER → 2021-03-15 | Outpatient (CLI) | payer MEDICAID, MEDICARE | LOC: M RAD 12:55 | PROVIDERS: ATTEND Internal Medicine Rheumatology | DX: M05.79 Rheumatoid arthritis with rheumatoid factor of multiple sites without organ or systems involvement (principal); M19.041 Primary osteoarthritis, right hand; M77.31 Calcaneal spur, right foot; M77.32 Calcaneal spur, left foot; M20.11 Hallux valgus (acquired), right foot; M20.12 Hallux valgus (acquired), left foot | CPT/HCPCS: 73130; 73630; G0463 ==

== ENCOUNTER → 2021-04-10 | Outpatient (REF) | payer MEDICARE, MEDICAID | LOC: M SFHCWAGY 17:40 | PROVIDERS: ATTEND Obstetrics & Gynecology | DX: L30.8 Other specified dermatitis (principal); D28.0 Benign neoplasm of vulva ==

== ENCOUNTER → 2021-05-16 | Outpatient (CLI) | payer MEDICARE, MEDICAID ==
[2021-05-16 14:05] LABS: BASO # 0.1 10^3/uL (0.0-0.2); BASO % 0.9 % (0.0-1.0); EOS # 0.3 10^3/uL (0.0-0.5); EOS % 2.9 % (0.0-3.0); HEMATOCRIT 44.8 % (36.0-47.0); HEMOGLOBIN 14.6 g/dl (12.0-15.5); LYMPH # 2.8 10^3/uL (1.5-5.0); LYMPH % 32.5 % (24.0-44.0); MEAN CORPUSCULAR HGB CONC 32.6 g/dl (32.0-36.5); MEAN CORPUSCULAR VOLUME 95.1 fl (80.0-96.0); MONO # 0.5 10^3/uL (0.0-0.8); MONO % 6.2 % (2.0-8.0); NEUTROPHILS # 4.9 10^3/uL (1.5-8.5); NEUTROPHILS % 57.3 % (36.0-66.0); PLATELET COUNT, AUTOMATED 289 10^3/uL (150-450); RED BLOOD COUNT 4.71 10^6/uL (4.00-5.40); WHITE BLOOD COUNT 8.6 10^3/uL (4.0-10.0)
[2021-05-16 14:32] LABS: ALBUMIN 3.7 GM/DL (3.2-5.2); ALT/SGPT 34 U/L (12-78); BILIRUBIN,TOTAL 0.3 MG/DL (0.2-1.0); BLOOD UREA NITROGEN 14 MG/DL (7-18); C REACTIVE PROTEIN QUANTITATIV 0.34 MG/DL (0.00-0.30); CALCIUM LEVEL 9.3 MG/DL (8.5-10.1); CARBON DIOXIDE LEVEL 31 MEQ/L (21-32); CHLORIDE LEVEL 105 MEQ/L (98-107); CREATININE FOR GFR 0.66 MG/DL (0.55-1.30); GLOMERULAR FILTRATION RATE > 60.0 (>51); GLUCOSE, FASTING 85 MG/DL (70-100); POTASSIUM SERUM 4.8 MEQ/L (3.5-5.1); SODIUM LEVEL 139 MEQ/L (136-145); TOTAL PROTEIN 7.3 GM/DL (6.4-8.2)
[2021-05-16 14:44] LABS: ERYTHROCYTE SEDIMENTATION RATE 43 mm/hr (0-30)
== END ==
LOC: M LAB 12:42
PROVIDERS: ATTEND Internal Medicine Rheumatology
DX: M05.79 Rheumatoid arthritis with rheumatoid factor of multiple sites without organ or systems involvement (principal); R79.89 Other specified abnormal findings of blood chemistry; M89.49 Other hypertrophic osteoarthropathy, multiple sites; R21 Rash and other nonspecific skin eruption; Z72.0 Tobacco use; Z79.899 Other long term (current) drug therapy

== ENCOUNTER → 2021-06-12 | Outpatient (CLI) | payer MEDICARE ==
[2021-06-12 15:24] LABS: BASO # 0.1 10^3/uL (0.0-0.2); EOS # 0.3 10^3/uL (0.0-0.5); EOS % 3.5 % (0.0-3.0); HEMATOCRIT 44.7 % (36.0-47.0); HEMOGLOBIN 14.9 g/dl (12.0-15.5); LYMPH # 2.8 10^3/uL (1.5-5.0); LYMPH % 35.3 % (24.0-44.0); MEAN CORPUSCULAR HEMOGLOBIN 31.6 pg (27.0-33.0); MEAN CORPUSCULAR HGB CONC 33.3 g/dl (32.0-36.5); MEAN CORPUSCULAR VOLUME 94.7 fl (80.0-96.0); MONO # 0.5 10^3/uL (0.0-0.8); MONO % 5.7 % (2.0-8.0); NEUTROPHILS # 4.4 10^3/uL (1.5-8.5); NEUTROPHILS % 54.1 % (36.0-66.0); PLATELET COUNT, AUTOMATED 272 10^3/uL (150-450); RED BLOOD COUNT 4.72 10^6/uL (4.00-5.40)
[2021-06-12 15:43] LABS: ERYTHROCYTE SEDIMENTATION RATE 31 mm/hr (0-30)
[2021-06-12 17:27] LABS: ALBUMIN 3.9 GM/DL (3.2-5.2); ALT/SGPT 27 U/L (12-78); BILIRUBIN,TOTAL 0.3 MG/DL (0.2-1.0); BLOOD UREA NITROGEN 16 MG/DL (7-18); CALCIUM LEVEL 9.8 MG/DL (8.5-10.1); CARBON DIOXIDE LEVEL 27 MEQ/L (21-32); CHLORIDE LEVEL 106 MEQ/L (98-107); CREATININE FOR GFR 0.64 MG/DL (0.55-1.30); GLOMERULAR FILTRATION RATE > 60.0 (>51); GLUCOSE, FASTING 84 MG/DL (70-100); POTASSIUM SERUM 4.3 MEQ/L (3.5-5.1); SODIUM LEVEL 140 MEQ/L (136-145); TOTAL PROTEIN 7.6 GM/DL (6.4-8.2)
== END ==
LOC: M RAD 13:43
PROVIDERS: ATTEND Internal Medicine Rheumatology
DX: R93.7 Abnormal findings on diagnostic imaging of other parts of musculoskeletal system (principal); M85.30 Osteitis condensans, unspecified site; M05.79 Rheumatoid arthritis with rheumatoid factor of multiple sites without organ or systems involvement; R79.89 Other specified abnormal findings of blood chemistry; M89.49 Other hypertrophic osteoarthropathy, multiple sites; Z72.0 Tobacco use; R21 Rash and other nonspecific skin eruption; Z79.899 Other long term (current) drug therapy

== ENCOUNTER → 2021-06-12 | Outpatient (CLI) | payer MEDICAID, MEDICARE | LOC: M RAD 13:19 | DX: Z12.2 Encounter for screening for malignant neoplasm of respiratory organs (principal); Z87.891 Personal history of nicotine dependence ==

== ENCOUNTER 2021-08-10 15:44 | Emergency (ER) | payer MEDICAID, MEDICARE ==
[~2021-08-10] VITALS: Ht 157.5 cm; Wt 64.6 kg
[2021-08-10] MEDS ORDERED: ISOVUE-370 76% 100ML VIAL As Ordered ONE (16:39)
[2021-08-10 16:46] LABS: BASO # 0.1 10^3/uL (0.0-0.2); BASO % 0.8 % (0.0-1.0); EOS # 0.2 10^3/uL (0.0-0.5); EOS % 2.1 % (0.0-3.0); HEMATOCRIT 44.3 % (36.0-47.0); HEMOGLOBIN 14.7 g/dl (12.0-15.5); LYMPH # 3.8 10^3/uL (1.5-5.0); LYMPH % 33.2 % (24.0-44.0); MEAN CORPUSCULAR HEMOGLOBIN 31.5 pg (27.0-33.0); MEAN CORPUSCULAR HGB CONC 33.2 g/dl (32.0-36.5); MEAN CORPUSCULAR VOLUME 95.1 fl (80.0-96.0); MONO # 0.6 10^3/uL (0.0-0.8); MONO % 4.9 % (2.0-8.0); NEUTROPHILS # 6.7 10^3/uL (1.5-8.5); NEUTROPHILS % 58.8 % (36.0-66.0); PLATELET COUNT, AUTOMATED 278 10^3/uL (150-450); RED BLOOD COUNT 4.66 10^6/uL (4.00-5.40); WHITE BLOOD COUNT 11.4 10^3/uL (4.0-10.0)
[2021-08-10 16:49] LABS: CK-MB VALUE MASS < 1.0 NG/ML (<3.6); CPK CREATINE PHOSPHOKINASE 101 U/L (26-192); MB/CK RELATIVE INDEX 0.99 (< OR =4)
[2021-08-10 16:50] LABS: ALBUMIN 3.6 GM/DL (3.2-5.2); ALT/SGPT 27 U/L (12-78); BILIRUBIN,DIRECT < 0.1 MG/DL (0.0-0.2); BILIRUBIN,TOTAL 0.3 MG/DL (0.2-1.0); LIPASE 185 U/L (73-393); TOTAL PROTEIN 7.1 GM/DL (6.4-8.2)
[2021-08-10 17:04] LABS: INR 0.94
[2021-08-10 17:39] LABS: CK-MB VALUE MASS < 1.0 NG/ML (<3.6); CPK CREATINE PHOSPHOKINASE 85 U/L (26-192); MB/CK RELATIVE INDEX 1.18 (< OR =4)
[2021-08-10 18:01] LABS: RSV AMPLIFICATION NEGATIVE (NEGATIVE)
[2021-08-10 18:40] LABS: PARTIAL THROMBOPLASTIN TIME 32.6 SECONDS (25.9-37.0)
[2021-08-10 20:04] LABS: CK-MB VALUE MASS 1.1 NG/ML (<3.6); CPK CREATINE PHOSPHOKINASE 81 U/L (26-192); MB/CK RELATIVE INDEX 1.36 (< OR =4)
[2021-08-10 21:23] VITALS: BP 123/74
== END 2021-08-10 21:28 | disposition home or self-care (01) ==
LOC: M ED 15:44
DX: R07.89 Other chest pain (principal); J43.9 Emphysema, unspecified; E78.5 Hyperlipidemia, unspecified; Z86.73 Personal history of transient ischemic attack (TIA), and cerebral infarction without residual deficits; J44.9 Chronic obstructive pulmonary disease, unspecified; F17.200 Nicotine dependence, unspecified, uncomplicated; Q07.00 Arnold-Chiari syndrome without spina bifida or hydrocephalus; Z79.899 Other long term (current) drug therapy
CPT/HCPCS: 70450; 71045; 71275; 80047; 80076; 82550; 82553; 83690; 84484; 85025; 85610; 85730; 87631; 93005; 93041; 94760; 99285; Q9967

== ENCOUNTER → 2021-12-18 | Outpatient (CLI) | payer MEDICAID, MEDICARE ==
[2021-12-18 14:27] LABS: BASO # 0.1 10^3/uL (0.0-0.2); EOS # 0.2 10^3/uL (0.0-0.5); EOS % 2.2 % (0.0-3.0); HEMATOCRIT 43.6 % (36.0-47.0); HEMOGLOBIN 14.3 g/dl (12.0-15.5); LYMPH # 2.6 10^3/uL (1.5-5.0); LYMPH % 33.7 % (24.0-44.0); MEAN CORPUSCULAR HEMOGLOBIN 32.1 pg (27.0-33.0); MEAN CORPUSCULAR HGB CONC 32.8 g/dl (32.0-36.5); MEAN CORPUSCULAR VOLUME 97.8 fl (80.0-96.0); MONO # 0.4 10^3/uL (0.0-0.8); MONO % 5.3 % (2.0-8.0); NEUTROPHILS # 4.5 10^3/uL (1.5-8.5); NEUTROPHILS % 57.5 % (36.0-66.0); PLATELET COUNT, AUTOMATED 278 10^3/uL (150-450); RED BLOOD COUNT 4.46 10^6/uL (4.00-5.40); WHITE BLOOD COUNT 7.8 10^3/uL (4.0-10.0)
[2021-12-18 14:56] LABS: ALBUMIN 3.6 GM/DL (3.2-5.2); ALT/SGPT 20 U/L (12-78); BILIRUBIN,TOTAL 0.3 MG/DL (0.2-1.0); BLOOD UREA NITROGEN 14 MG/DL (7-18); C REACTIVE PROTEIN QUANTITATIV 0.39 MG/DL (0.00-0.30); CALCIUM LEVEL 8.9 MG/DL (8.5-10.1); CARBON DIOXIDE LEVEL 30 MEQ/L (21-32); CHLORIDE LEVEL 105 MEQ/L (98-107); CREATININE FOR GFR 0.72 MG/DL (0.55-1.30); GLOMERULAR FILTRATION RATE > 60.0 (>51); GLUCOSE, FASTING 88 MG/DL (70-100); POTASSIUM SERUM 4.5 MEQ/L (3.5-5.1); SODIUM LEVEL 139 MEQ/L (136-145)
[2021-12-18 15:09] LABS: ERYTHROCYTE SEDIMENTATION RATE 36 mm/hr (0-30)
== END ==
LOC: M LAB 13:21
PROVIDERS: ATTEND Internal Medicine Rheumatology
DX: M05.79 Rheumatoid arthritis with rheumatoid factor of multiple sites without organ or systems involvement (principal); R79.89 Other specified abnormal findings of blood chemistry; M89.49 Other hypertrophic osteoarthropathy, multiple sites; Z79.899 Other long term (current) drug therapy; Z72.0 Tobacco use; R21 Rash and other nonspecific skin eruption

== ENCOUNTER → 2021-12-21 | Outpatient (REF) | payer MEDICARE, MEDICAID | LOC: M SFHCRHEU 12:09 | PROVIDERS: ATTEND Internal Medicine Rheumatology | DX: M05.79 Rheumatoid arthritis with rheumatoid factor of multiple sites without organ or systems involvement (principal); R79.89 Other specified abnormal findings of blood chemistry; M89.49 Other hypertrophic osteoarthropathy, multiple sites; Z79.899 Other long term (current) drug therapy; Z72.0 Tobacco use; R21 Rash and other nonspecific skin eruption ==

== ENCOUNTER 2022-02-07 15:19 | Emergency (ER) | payer MEDICARE ==
[~2022-02-07] VITALS: Ht 157.5 cm; Wt 63.2 kg
[2022-02-07 15:20] VITALS: BP 131/72
== END 2022-02-07 18:45 | disposition left against medical advice (07) ==
LOC: M ED 15:19
DX: Z53.21 Procedure and treatment not carried out due to patient leaving prior to being seen by health care provider (principal)

== ENCOUNTER → 2022-02-08 | Outpatient (CLI) | payer MEDICAID, MEDICARE | LOC: M PLAIMG 14:52 | PROVIDERS: ATTEND Internal Medicine Rheumatology | DX: M05 Rheumatoid arthritis with rheumatoid factor (principal); R79.89 Other specified abnormal findings of blood chemistry; M89.49 Other hypertrophic osteoarthropathy, multiple sites; Z79.899 Other long term (current) drug therapy; Z72.0 Tobacco use; R21 Rash and other nonspecific skin eruption; M16.0 Bilateral primary osteoarthritis of hip; M94.252 Chondromalacia, left hip; M25.452 Effusion, left hip; M25.451 Effusion, right hip; M24.151 Other articular cartilage disorders, right hip; M24.142 Other articular cartilage disorders, left hand ==

== ENCOUNTER → 2022-04-09 | Outpatient (CLI) | payer MEDICARE ==
[2022-04-09 15:44] LABS: HEMATOCRIT 43.7 % (36.0-47.0); HEMOGLOBIN 14.6 g/dl (12.0-15.5); MEAN CORPUSCULAR HEMOGLOBIN 31.2 pg (27.0-33.0); MEAN CORPUSCULAR HGB CONC 33.4 g/dl (32.0-36.5); MEAN CORPUSCULAR VOLUME 93.4 fl (80.0-96.0); PLATELET COUNT, AUTOMATED 263 10^3/uL (150-450); RED BLOOD COUNT 4.68 10^6/uL (4.00-5.40); WHITE BLOOD COUNT 10.5 10^3/uL (4.0-10.0)
[2022-04-09 15:51] LABS: ERYTHROCYTE SEDIMENTATION RATE 35 mm/hr (0-30)
[2022-04-09 15:56] LABS: INR 0.97; PROTHROMBIN TIME 13.1 SECONDS (12.5-14.5)
[2022-04-09 16:22] LABS: ALBUMIN 3.7 G/DL (3.2-5.2); ALKALINE PHOSPHATASE 95 U/L (46-116); ALT/SGPT 14 U/L (7.0-40); AST/SGOT 23 U/L (<34); BILIRUBIN,TOTAL 0.4 MG/DL (0.3-1.2); BLOOD UREA NITROGEN 15 MG/DL (9-23); CALCIUM LEVEL 9.1 MG/DL (8.5-10.1); CARBON DIOXIDE LEVEL 30 MMOL/L (20-31); CHLORIDE LEVEL 101 MMOL/L (98-107); CREATININE FOR GFR 0.61 MG/DL (0.55-1.30); GLOMERULAR FILTRATION RATE > 60.0 (>51); GLUCOSE, FASTING 78 MG/DL (60-100); POTASSIUM SERUM 4.6 MMOL/L (3.5-5.1); SODIUM LEVEL 137 MMOL/L (136-145); TOTAL PROTEIN 7.2 G/DL (5.7-8.2)
== END ==
LOC: M RAD 14:08
PROVIDERS: ATTEND Orthopaedic Surgery
DX: M16.12 Unilateral primary osteoarthritis, left hip (principal); J98.4 Other disorders of lung

== ENCOUNTER → 2022-07-12 | Outpatient (CLI) | payer MEDICARE, OTHER ==
[2022-07-12 14:28] LABS: BASO # 0.1 10^3/uL (0.0-0.2); BASO % 0.8 % (0.0-1.0); EOS # 0.3 10^3/uL (0.0-0.5); EOS % 2.6 % (0.0-3.0); HEMATOCRIT 40.9 % (36.0-47.0); HEMOGLOBIN 13.7 g/dl (12.0-15.5); LYMPH % 25.1 % (24.0-44.0); MEAN CORPUSCULAR HEMOGLOBIN 30.1 pg (27.0-33.0); MEAN CORPUSCULAR HGB CONC 33.5 g/dl (32.0-36.5); MEAN CORPUSCULAR VOLUME 89.9 fl (80.0-96.0); MONO # 0.5 10^3/uL (0.0-0.8); MONO % 4.4 % (2.0-8.0); NEUTROPHILS # 8.1 10^3/uL (1.5-8.5); NEUTROPHILS % 66.9 % (36.0-66.0); PLATELET COUNT, AUTOMATED 282 10^3/uL (150-450); RED BLOOD COUNT 4.55 10^6/uL (4.00-5.40); WHITE BLOOD COUNT 12.1 10^3/uL (4.0-10.0)
[2022-07-12 14:53] LABS: ALBUMIN 3.3 G/DL (3.2-5.2); ALKALINE PHOSPHATASE 108 U/L (46-116); ALT/SGPT 14 U/L (7.0-40); AST/SGOT 18 U/L (<34); BILIRUBIN,TOTAL 0.3 MG/DL (0.3-1.2); BLOOD UREA NITROGEN 12 MG/DL (9-23); CALCIUM LEVEL 8.6 MG/DL (8.5-10.1); CARBON DIOXIDE LEVEL 25 MMOL/L (20-31); CHLORIDE LEVEL 106 MMOL/L (98-107); GLOMERULAR FILTRATION RATE > 60.0 (>51); GLUCOSE, FASTING 83 MG/DL (60-100); POTASSIUM SERUM 4.2 MMOL/L (3.5-5.1); SODIUM LEVEL 140 MMOL/L (136-145); TOTAL PROTEIN 6.4 G/DL (5.7-8.2)
[2022-07-12 14:58] LABS: ERYTHROCYTE SEDIMENTATION RATE 49 mm/hr (0-30)
== END ==
LOC: M LAB 13:44
PROVIDERS: ATTEND Internal Medicine Rheumatology
DX: M05.79 Rheumatoid arthritis with rheumatoid factor of multiple sites without organ or systems involvement (principal); R79.89 Other specified abnormal findings of blood chemistry; M89.49 Other hypertrophic osteoarthropathy, multiple sites; Z79.899 Other long term (current) drug therapy; Z72.0 Tobacco use; R21 Rash and other nonspecific skin eruption

== ENCOUNTER → 2022-07-15 | Outpatient (REF) | payer MEDICARE | LOC: M SFHCRHEU 15:58 | PROVIDERS: ATTEND Internal Medicine Rheumatology | DX: M05.79 Rheumatoid arthritis with rheumatoid factor of multiple sites without organ or systems involvement (principal); R79.89 Other specified abnormal findings of blood chemistry; M89.49 Other hypertrophic osteoarthropathy, multiple sites; Z79.899 Other long term (current) drug therapy; Z72.0 Tobacco use; R21 Rash and other nonspecific skin eruption ==

== ENCOUNTER → 2022-10-14 | Outpatient (CLI) | payer MEDICARE | LOC: M RAD 12:07 | PROVIDERS: ATTEND Nurse Practitioner Adult Health | DX: R59.9 Enlarged lymph nodes, unspecified (principal) ==

== ENCOUNTER → 2022-12-10 | Outpatient (CLI) | payer OTHER | LOC: M PLAIMG 14:00 | PROVIDERS: ATTEND Nurse Practitioner Family | DX: M79.672 Pain in left foot (principal); M21.612 Bunion of left foot; M19.072 Primary osteoarthritis, left ankle and foot; M20.12 Hallux valgus (acquired), left foot ==

== ENCOUNTER → 2022-12-10 | Outpatient (CLI) | payer OTHER | LOC: M PLAIMG 12:59 | PROVIDERS: ATTEND Nurse Practitioner Family | DX: Q07.00 Arnold-Chiari syndrome without spina bifida or hydrocephalus (principal); R51.9 Headache, unspecified ==

== ENCOUNTER → 2022-12-23 | Outpatient (CLI) | payer MEDICARE, OTHER ==
[2022-12-23 15:25] LABS: BASO # 0.1 10^3/uL (0.0-0.2); BASO % 0.7 % (0.0-1.0); EOS # 0.2 10^3/uL (0.0-0.5); EOS % 1.8 % (0.0-3.0); HEMATOCRIT 40.2 % (36.0-47.0); HEMOGLOBIN 13.7 g/dl (12.0-15.5); LYMPH # 2.8 10^3/uL (1.5-5.0); MEAN CORPUSCULAR HEMOGLOBIN 31.2 pg (27.0-33.0); MEAN CORPUSCULAR HGB CONC 34.1 g/dl (32.0-36.5); MEAN CORPUSCULAR VOLUME 91.6 fl (80.0-96.0); MONO # 0.6 10^3/uL (0.0-0.8); MONO % 5.9 % (2.0-8.0); NEUTROPHILS # 5.7 10^3/uL (1.5-8.5); NEUTROPHILS % 61.3 % (36.0-66.0); PLATELET COUNT, AUTOMATED 275 10^3/uL (150-450); RED BLOOD COUNT 4.39 10^6/uL (4.00-5.40); WHITE BLOOD COUNT 9.4 10^3/uL (4.0-10.0)
[2022-12-23 15:39] LABS: ERYTHROCYTE SEDIMENTATION RATE 50 mm/hr (0-30)
[2022-12-24 00:50] LABS: ALBUMIN 3.6 G/DL (3.2-5.2); ALKALINE PHOSPHATASE 108 U/L (46-116); ALT/SGPT 14 U/L (7.0-40); AST/SGOT 20 U/L (<34); BILIRUBIN,TOTAL 0.3 MG/DL (0.3-1.2); BLOOD UREA NITROGEN 10 MG/DL (9-23); C REACTIVE PROTEIN QUANTITATIV < 0.40 MG/DL (<1.0); CALCIUM LEVEL 9.3 MG/DL (8.5-10.1); CARBON DIOXIDE LEVEL 28 MMOL/L (20-31); CHLORIDE LEVEL 105 MMOL/L (98-107); CREATININE FOR GFR 0.67 MG/DL (0.55-1.30); GLOMERULAR FILTRATION RATE > 60.0 (>51); GLUCOSE, FASTING 82 MG/DL (60-100); POTASSIUM SERUM 4.9 MMOL/L (3.5-5.1); SODIUM LEVEL 141 MMOL/L (136-145); TOTAL PROTEIN 6.8 G/DL (5.7-8.2)
== END ==
LOC: M LAB 14:27
PROVIDERS: ATTEND Internal Medicine Rheumatology
DX: M05.79 Rheumatoid arthritis with rheumatoid factor of multiple sites without organ or systems involvement (principal)

== ENCOUNTER → 2022-12-24 | Outpatient (REF) | payer MEDICARE | LOC: M SFHCRHEU 09:38 | PROVIDERS: ATTEND Internal Medicine Rheumatology | DX: M05.79 Rheumatoid arthritis with rheumatoid factor of multiple sites without organ or systems involvement (principal); R79.89 Other specified abnormal findings of blood chemistry; M89.49 Other hypertrophic osteoarthropathy, multiple sites; Z79.899 Other long term (current) drug therapy; Z72.0 Tobacco use; R21 Rash and other nonspecific skin eruption ==

== ENCOUNTER → 2023-03-24 | Outpatient (CLI) | payer OTHER, MEDICARE | LOC: M WHC 12:57 | PROVIDERS: ATTEND Nurse Practitioner Family | DX: Z12.31 Encounter for screening mammogram for malignant neoplasm of breast (principal); R92.323 Mammographic fibroglandular density, bilateral breasts ==